=== PATIENT | female | born 1975 | race Caucasian/White ===

== ENCOUNTER 2017-03-13 17:24 | Emergency (ER) | payer OTHER ==
[2017-03-13 17:31] VITALS: BP 98/61
--- NOTE | 2017-03-13 17:44 | UC ---
Throat Pain/Nasal Rohan HPI - HPI Summary HPI Summary: sinus pain and pressure x 7 days + pnd, cough, nasal congestion and sore throat no fever, + chills - History of Current Complaint Chief Complaint: UCRespiratory Stated Complaint: CHEST CONGESTION,COUGH Time Seen by Provider: 03/13/17 17:32 Hx Obtained From: Patient Hx Last Menstrual Period: n/a ?: No Onset/Duration: Gradual Onset, Lasting Weeks - 1, Still Present Severity: Moderate Cough: Sputum Appears - green Associated Signs & Symptoms: Positive: Sinus Discomfort, Nasal Discharge - Allergies/Home Medications Allergies/Adverse Reactions: Allergies Allergy/AdvReac Type Severity Reaction Status Date / Time Ethanol [From Robitussin] AdvReac Vomiting Verified 03/13/17 17:31 Guaifenesin [From Robitussin] AdvReac Vomiting Verified 03/13/17 17:31 Morphine AdvReac See Comment Verified 03/13/17 17:31 Home Medications: Home Medications Famotidine TAB* [Pepcid 20 MG TAB*] 20 mg PO DAILY 03/13/17 [History Confirmed 03/13/17] PMH/Surg Hx/FS Hx/Imm Hx Endocrine History: Thyroid Disease Respiratory History: Asthma - Surgical History Surgical History: Yes Surgery Procedure, Year, and Place: colonoscopy. endoscopic. histroscopic [place]. partial cervix removed. HYSTERECTOMY--03/2014 - Family History Known Family History: Negative: Diabetes - Social History Alcohol Use: None Substance Use Type: None Smoking Status (MU): Heavy Every Day Tobacco Smoker Type: Cigarettes Amount Used/How Often: 1 PPD Length of Time of Smoking/Using Tobacco: SINCE AGE 20 Have You Smoked in the Last Year: Yes Household Exposure Type: Cigarettes - Immunization History Most Recent Influenza Vaccination: no Review of Systems Constitutional: Negative Skin: Negative Eyes: Negative ENT: Negative, Sore Throat, Nasal Discharge, Sinus Congestion, Sinus Pain/ Tenderness Respiratory: Cough Is Patient Immunocompromised?: No All Other Systems Reviewed And Are Negative: Yes Physical Exam Triage Information Reviewed: Yes Appearance: Well-Appearing, No Pain Distress, Well-Nourished Vital Signs: Initial Vital Signs Temp 98.2 F 03/13/17 17:26 Pulse 69 03/13/17 17:26 Resp 16 03/13/17 17:26 BP 98/61 03/13/17 17:26 Pulse Ox 99 03/13/17 17:26 Vital Signs Reviewed: Yes Eyes: Positive: Conjunctiva Clear ENT: Positive: Normal ENT inspection, Hearing grossly normal, Pharyngeal erythema, Nasal congestion, Nasal drainage, TMs normal Neck: Positive: Supple, Nontender, No Lymphadenopathy Respiratory: Positive: Chest non-tender, Lungs clear, Normal breath sounds, No respiratory distress Cardiovascular Exam: Normal Cardiovascular: Positive: RRR, No Murmur, Pulses Normal Abdominal Exam: Normal Skin Exam: Normal Throat Pain/Nasal Course/Dx - Differential Dx/Diagnosis Provider Diagnoses: sinusitis Discharge - Discharge Plan Condition: Stable Disposition: HOME Prescriptions: Amoxicillin/Clavulanate TAB* [Augmentin TAB 875*] 875 mg PO BID #20 tab Patient Education Materials: Sinusitis (ED) Forms: *Work Release
== END 2017-03-13 17:51 | disposition home or self-care (01) ==
LOC: UCCORT 17:24
DX: J32.9 Chronic sinusitis, unspecified (principal); E07.9 Disorder of thyroid, unspecified; J45.909 Unspecified asthma, uncomplicated; Z90.710 Acquired absence of both cervix and uterus; Z88.5 Allergy status to narcotic agent; F17.210 Nicotine dependence, cigarettes, uncomplicated
CPT/HCPCS: 99212; G0463

== ENCOUNTER 2017-07-20 17:22 | Emergency (ER) | payer OTHER ==
[2017-07-20 18:38] VITALS: BP 117/68
--- NOTE | 2017-07-20 19:26 | UC ---
Dental HPI - HPI Summary HPI Summary: pt c/o gradual onset of left lower jaw pain and swelling along gum line. Pt states she has "bad teeth" and is scheduled for lower teeth to be extracted on Aug 03. Pt has all upper teeth extracted. and wears dentures. Has history of poor dentition. - History of Current Complaint Chief Complaint: UCDentalProblem Stated Complaint: DENTAL COMPLAINT Time Seen by Provider: 07/20/17 19:21 Hx Obtained From: Patient Hx Last Menstrual Period: n/a ?: No Onset/Duration: Gradual Onset, Lasting Days, Still Present Severity: Moderate Pain Intensity: 6 Aggravating Factor(s): Chewing Alleviating Factor(s): Nothing Related History: Swelling - Allergies/Home Medications Allergies/Adverse Reactions: Allergies Allergy/AdvReac Type Severity Reaction Status Date / Time Ethanol [From Robitussin] AdvReac Vomiting Verified 07/20/17 18:35 Guaifenesin [From Robitussin] AdvReac Vomiting Verified 07/20/17 18:35 Morphine AdvReac See Comment Verified 07/20/17 18:35 PMH/Surg Hx/FS Hx/Imm Hx Previously Healthy: Yes - Surgical History Surgical History: Yes Surgery Procedure, Year, and Place: colonoscopy. endoscopic. histroscopic [place]. partial cervix removed. HYSTERECTOMY--03/2014 - Family History Known Family History: Positive: Hypertension, Respiratory Disease, Other - MS - mom and two aunts Negative: Diabetes - Social History Occupation: Employed Full-time Lives: With Family Alcohol Use: None Substance Use Type: None Smoking Status (MU): Heavy Every Day Tobacco Smoker Type: Cigarettes Amount Used/How Often: 1 PPD Length of Time of Smoking/Using Tobacco: SINCE AGE 20 Have You Smoked in the Last Year: Yes Household Exposure Type: Cigarettes - Immunization History Most Recent Influenza Vaccination: none 2017 Review of Systems Constitutional: Negative Skin: Negative Eyes: Negative ENT: Dental Pain Respiratory: Negative Cardiovascular: Negative Gastrointestinal: Negative Genitourinary: Negative Motor: Negative Neurovascular: Negative Musculoskeletal: Negative Neurological: Negative Psychological: Negative Is Patient Immunocompromised?: No All Other Systems Reviewed And Are Negative: Yes Physical Exam Triage Information Reviewed: Yes Appearance: Well-Appearing Vital Signs: Initial Vital Signs Temp 98.1 F 07/20/17 18:32 Pulse 65 07/20/17 18:32 Resp 16 07/20/17 18:32 BP 117/68 07/20/17 18:32 Pulse Ox 100 07/20/17 18:32 Vital Signs Reviewed: Yes Eye Exam: Normal ENT Exam: Normal Dental: Positive: Percussion Tenderness @, Gross Decay/Caries @, Abscess @ - left lower teeth, Numbers 20-22 Dental Complaint Course/Dx - Course Course Of Treatment: Pt was instructed to keep appointment with dental proovider for f/u and if symptoms worsen to seek medical/dental attention as soon as possible. - Differential Dx/Diagnosis Differential Diagnosis/Dx: Dental Abscess, Dental Caries Provider Diagnoses: dental abscess Discharge - Discharge Plan Condition: Stable Disposition: HOME Prescriptions: Clindamycin Cap(NF) [Clindamycin Cap 300 mg Cap(NF)] 300 mg PO Q8H #30 cap Ibuprofen TAB* [Motrin TAB* 600 MG] 600 mg PO Q8H PRN #15 tab PRN Reason: Pain Patient Education Materials: Dental Abscess (ED) Referrals: KHARI Dyson [Primary Care Provider] - If Needed Additional Instructions: Please follow up with your dental care provider as scheduled. If symptoms worsen please follow up as needed.
== END 2017-07-20 19:35 | disposition home or self-care (01) ==
LOC: UCCORT 17:22
DX: K04.7 Periapical abscess without sinus (principal); F17.210 Nicotine dependence, cigarettes, uncomplicated
CPT/HCPCS: 99212; G0463

== ENCOUNTER 2017-09-04 12:58 | Emergency (ER) | payer OTHER ==
[2017-09-04 13:37] VITALS: BP 107/64
[2017-09-04] MEDS ORDERED: Ibuprofen ADULT LIQ* 600 MG/30 ML UDC PO ONE (14:09)
--- NOTE | 2017-09-04 14:14 | UC ---
UC General HPI - HPI Summary HPI Summary: pt is c/o pain in her R front lower rib for the past weeks. it radiates around the side and into her back ribs with a deep breath. she denies any fever, chills , cough, sob, leg/calf pain/swelling and no associated injury. pt denies any abdominal pain of changes with meals and has no urinary s/s's. she lifts and twist a lot at work which causes her discomfort. - History of Current Complaint Chief Complaint: UCBackPain Stated Complaint: RIGHT RIB/BACK PAIN Time Seen by Provider: 09/04/17 13:45 Hx Obtained From: Patient Hx Last Menstrual Period: n/a Onset/Duration: Gradual Onset Timing: Constant Pain Intensity: 7 Associated Signs & Symptoms: Negative: Abdominal Pain, Back Pain, Cough, Dysuria , Fever, Hemoptysis, SOB, Wheezing - Allergy/Home Medications Allergies/Adverse Reactions: Allergies Allergy/AdvReac Type Severity Reaction Status Date / Time guaifenesin [From Robitussin] Allergy Vomiting Verified 09/04/17 13:40 morphine Allergy See Comment Verified 09/04/17 13:40 PMH/Surg Hx/FS Hx/Imm Hx Previously Healthy: Yes - Surgical History Surgical History: Yes Surgery Procedure, Year, and Place: colonoscopy. endoscopic. histroscopic [place]. partial cervix removed. HYSTERECTOMY--03/2014 - Family History Known Family History: Positive: Hypertension, Respiratory Disease, Other - MS - mom and two aunts Negative: Diabetes - Social History Occupation: Employed Full-time Lives: With Family Alcohol Use: None Substance Use Type: None Smoking Status (MU): Heavy Every Day Tobacco Smoker Type: Cigarettes Amount Used/How Often: 1 PPD Length of Time of Smoking/Using Tobacco: SINCE AGE 20 Have You Smoked in the Last Year: Yes Household Exposure Type: Cigarettes - Immunization History Most Recent Influenza Vaccination: none 2017 Vaccination Up to Date: Yes Review of Systems Constitutional: Negative Skin: Negative Eyes: Negative ENT: Negative Respiratory: Negative Cardiovascular: Negative Gastrointestinal: Negative Genitourinary: Negative Motor: Negative Neurovascular: Negative Musculoskeletal: Negative Neurological: Negative Psychological: Negative Is Patient Immunocompromised?: No All Other Systems Reviewed And Are Negative: Yes Physical Exam Triage Information Reviewed: Yes Appearance: Well-Appearing Vital Signs: Initial Vital Signs Temp 98.9 F 09/04/17 13:31 Pulse 60 09/04/17 13:31 Resp 16 09/04/17 13:31 BP 107/64 09/04/17 13:31 Pulse Ox 99 09/04/17 13:31 Vital Signs Reviewed: Yes Eyes: Positive: Conjunctiva Clear ENT: Positive: Normal ENT inspection Neck: Positive: Supple, Nontender, No Lymphadenopathy Respiratory: Positive: Lungs clear, Normal breath sounds, Other: - Chest has no rash or deformity. R anterior-inferior ribs are tender but no instability. R posterior lateral rib areas are tender as well. Cardiovascular: Positive: RRR, No Murmur, Pulses Normal Abdomen Description: Positive: Nontender, No Organomegaly, Soft, Other: - Pt c/ o pain with percussion on R but states it is rib pain.. Negative: CVA Tenderness (L), Distended, Guarding Bowel Sounds: Positive: Present Musculoskeletal: Positive: ROM Intact, No Edema, Other: - no calf tenderness. Neurological: Positive: Alert Psychological: Positive: Age Appropriate Behavior Skin Exam: Normal Skin: Negative: rashes Diagnostics - Laboratory ABG Interpretation: u/a=unremarkable - Radiology No standard instances Xray Interpretation: No Acute Changes Radiology Interpretation Completed By: Radiologist Course/Dx - Course Course Of Treatment: non toxic. benign abdominal exam. u/a=unremarkable. no concern for PE, not hypoxic, tachycardic, sob and no calf pain or swelling. cxr unremarkable. exam c/w chest wall pain. will limit work duty and tx with nsaid plus close f/u. - Differential Dx - Multi-Symptom Provider Diagnoses: R chest wall pain Discharge - Discharge Plan Condition: Stable Disposition: HOME Prescriptions: Naproxen [Naprosyn] 500 mg PO BID 7 Days #14 tablet Patient Education Materials: Chest Wall Pain (ED) Forms: *Work Release Referrals: KHARI Dyson [Primary Care Provider] - 5 Days
--- NOTE | 2017-09-04 14:32 | RAD ---
INDICATION: RIGHT anterior rib pain radiating into the back. COMPARISON: July 14, 2010 TECHNIQUE: Dual energy PA and routine lateral views of the chest were obtained. REPORT: Elevated lung volumes. No focal pulmonary lesion, compelling alveolar consolidation, pleural effusion, pneumothorax. The heart, pulmonary vasculature, and mediastinal contours are unremarkable. No rib fracture visualized. IMPRESSION: Elevated lung volumes may reflect obstructive lung disease or simply exuberant inspiratory effort for examination. No rib fracture acute cardiopulmonary process evident.
== END 2017-09-04 15:06 | disposition home or self-care (01) ==
LOC: UCCORT 12:58
DX: R07.89 Other chest pain (principal); Z88.5 Allergy status to narcotic agent; F17.210 Nicotine dependence, cigarettes, uncomplicated
CPT/HCPCS: 71046; 81003; 99212; A9270-GY; G0463

== ENCOUNTER 2017-11-12 10:34 | Emergency (ER) | payer OTHER ==
[2017-11-12 11:35] VITALS: BP 103/55
--- NOTE | 2017-11-12 11:45 | UC ---
Eye Complaint HPI - HPI Summary HPI Summary: 42 y/o female presents to the urgent care c/o B/L eye redness w/ crusty drainage since yesterday. Pt reports this morning she woke up w/ B/L eye close w/ yellowish drainage. Pt doesn't wear contact lenses or glasses. Pt denies photophobia or visual disturbance, OSEI, eye pain, dizziness, SOB, chest pain, abdominal pain/ N/V/D. - History of Current Complaint Chief Complaint: UCEye Stated Complaint: BI LAT EYE COMP Hx Obtained From: Patient Hx Last Menstrual Period: n/a ?: No Onset/Duration: Gradual Onset, Lasting Days - 1 day, Still Present, Worse Since - this morning Timing: Constant Severity Initially: Mild Severity Currently: Moderate Pain Intensity: 0 Pain Scale Used: 0-10 Numeric Location of Injury: Conjunctiva - B/L w/ yellowish drainage Character: Foreign Body Sensation Aggravating Factor(s): Blinking Alleviating Factor(s): Nothing Associated Signs And Symptoms: Positive: Drainage (Purulent). Negative: Photophobia, Fever, Swelling - Risk Factors Penetrating Injury Risk Factor: Negative Globe Rupture Risk Factors: Negative Acute Glaucoma Risk Factors: Negative Optic Artery Occlusion Risk Factors: Negative - Allergies/Home Medications Allergies/Adverse Reactions: Allergies Allergy/AdvReac Type Severity Reaction Status Date / Time guaifenesin [From Robitussin] Allergy Vomiting Verified 11/12/17 11:31 morphine Allergy See Comment Verified 11/12/17 11:31 Home Medications: Home Medications Acyclovir* [Zovirax 400 MG TAB*] 800 mg PO DAILY 11/12/17 [History Confirmed ] Cyclobenzaprine TAB* [Flexeril 10 MG TAB*] 10 mg PO BID PRN 11/12/17 [History Confirmed 11/12/17] Levothyroxine TAB* [Synthroid 137 MCG TAB*] 137 mcg PO EVERY OTHER DAY 11/12/17 [History Confirmed 11/12/17] PMH/Surg Hx/FS Hx/Imm Hx Previously Healthy: Yes Endocrine History: Hypothyroidism Respiratory History: Asthma Other GI/ History: Gastroperesis - Surgical History Surgical History: Yes Surgery Procedure, Year, and Place: colonoscopy. endoscopic. histroscopic [place]. partial cervix removed. HYSTERECTOMY--03/2014 - Family History Known Family History: Positive: Hypertension, Respiratory Disease, Other - MS - mom and two aunts Negative: Diabetes - Social History Occupation: Employed Full-time Lives: With Family Alcohol Use: None Substance Use Type: None Smoking Status (MU): Heavy Every Day Tobacco Smoker Type: Cigarettes Amount Used/How Often: 1 PPD Length of Time of Smoking/Using Tobacco: SINCE AGE 20 Have You Smoked in the Last Year: Yes Household Exposure Type: Cigarettes - Immunization History Most Recent Influenza Vaccination: none 2017 Vaccination Up to Date: Yes Review of Systems Constitutional: Negative Skin: Negative Eyes: Drainage - yellowish crusting, Eye Redness - B/L ENT: Negative Respiratory: Negative Cardiovascular: Negative Gastrointestinal: Negative Genitourinary: Negative Motor: Negative Neurovascular: Negative Musculoskeletal: Negative Neurological: Negative Psychological: Negative Is Patient Immunocompromised?: No All Other Systems Reviewed And Are Negative: Yes Physical Exam - Summary Physical Exam Summary: Vital Signs Reviewed: Yes General: Well appearing, well nourished female in no apparent pain distress Eyes: Positive: B/L Conjunctiva Inflamed - Visual acuity: WNL,Visual galindo: full to confrontation. PERRLA, EOMI intact w/out limitation or complaint of pain. eyelashes crusting yellowish discharge and mild tearing and yellowish drainage observed. No ciliary flush. No chemosis, No photophobia. Normal fundoscopic exam; no proptosis, exophthalmos, nystagmus. ENT: Positive: Normal ENT inspection, Hearing grossly normal, Pharynx normal, Nasal congestion, Nasal drainage - clear, TMs normal - B/L external ear canal clear , TM's WNL. Negative: Tonsillar swelling, Tonsillar exudate Neck: Positive: Supple, Nontender, No Lymphadenopathy Respiratory: Positive: Chest nontender, Lungs clear, Normal breath sounds, No respiratory distress Cardiovascular: Positive: RRR, No Murmur, Pulses Normal, Brisk Capillary Refill Abdomen Description: Positive: Nontender, No Organomegaly, Soft. Negative: CVA Tenderness (R), CVA Tenderness (L) Bowel Sounds: Positive: Present Musculoskeletal: Positive: Strength Intact, ROM Intact, No Edema Neurological Exam: Normal Psychological Exam: Normal Skin Exam: Normal Triage Information Reviewed: Yes Vital Signs: Initial Vital Signs Temp 98.2 F 11/12/17 11:26 Pulse 64 11/12/17 11:26 Resp 16 11/12/17 11:26 BP 103/55 05/21/18 11:26 Pulse Ox 100 11/12/17 11:26 Eye Complaint Course/Dx - Course Course Of Treatment: 42 y/o female presents to the urgent care c/o B/L eye redness w/ crusty drainage since yesterday. Pt reports this morning she woke up w/ B/L eye close w/ yellowish drainage. Pt doesn't wear contact lenses or glasses. Pt denies photophobia or visual disturbance, OSEI, eye pain, dizziness, SOB, chest pain, abdominal pain/ N/V/D.Hx obtained. Pt w/ B/L bacterial conjunctivitis on examination. Pt Rx Ciprofloxacin ophthalmic drops for her bacterial conjunctivitis. Pt instructed how to apply medication and if symptoms do not improve, advised to return to the urgent care or f/u with PCP for further evaluation and treatment. Pt understood and agreed w/ plan of care. - Differential Dx/Diagnosis Differential Diagnosis/HQI/PQRI: Conjunctivitis, Periorbital Cellulitis, Orbital Cellulitis, Uveitis Provider Diagnoses: 1- B/L acute bacterial conjunctivitis Discharge - Sign-Out/Discharge Documenting (check all that apply): Discharge/Admit/Transfer - D/C home - Discharge Plan Condition: Stable Disposition: HOME Prescriptions: Ciprofloxacin 0.3% OPTH.OBINNA* [Cipro 0.3% Opth*] 1 drop BOTH EYES Q2H #1 btl Patient Education Materials: Conjunctivitis (ED) Forms: *Work Release Referrals: KHARI Dyson [Primary Care Provider] - 2 Days Gena Blanca MD [Medical Doctor] - If Needed Additional Instructions: 1-Please apply ophthalmic drops as instructed and finish the full course of treatment to avoid recurrent infection. Encourage hand washing to avoid spread 2-If you do not improve or if symptoms worsen please f/u with wet and dry sugar bin operator DR Blanca or your PCP for further evaluation and treatment - Billing Disposition and Condition Condition: STABLE Disposition: HOME
--- NOTE | 2017-11-13 17:02 | ED ---
Progress - Progress Note Progress Note: pharmacy doesnt have cipro drops, and asked for alternate script. Sulfa drops sent. Work note extension requested and granted. Course/Dx - Course Course Of Treatment: 42 y/o female presents to the urgent care c/o B/L eye redness w/ crusty drainage since yesterday. Pt reports this morning she woke up w/ B/L eye close w/ yellowish drainage. Pt doesn't wear contact lenses or glasses. Pt denies photophobia or visual disturbance, OSEI, eye pain, dizziness, SOB, chest pain, abdominal pain/ N/V/D.Hx obtained. Pt w/ B/L bacterial conjunctivitis on examination. Pt Rx Ciprofloxacin ophthalmic drops for her bacterial conjunctivitis. Pt instructed how to apply medication and if symptoms do not improve, advised to return to the urgent care or f/u with PCP for further evaluation and treatment. Pt understood and agreed w/ plan of care. Discharge - Sign-Out/Discharge Documenting (check all that apply): Discharge/Admit/Transfer - Discharge Plan Condition: Stable Disposition: HOME Prescriptions: Ciprofloxacin 0.3% OPTH.OBINNA* [Cipro 0.3% Opth*] 1 drop BOTH EYES Q2H #1 btl Sulfacetamide 10 % OPTH.OBINNA* [Sulamyd 10% Opth*] 1 drop BOTH EYES Q4H #1 btl Patient Education Materials: Conjunctivitis (ED) Forms: *Work Release Referrals: KHARI Dyson [Primary Care Provider] - 2 Days Gena Blanca MD [Medical Doctor] - If Needed Additional Instructions: 1-Please apply ophthalmic drops as instructed and finish the full course of treatment to avoid recurrent infection. Encourage hand washing to avoid spread 2-If you do not improve or if symptoms worsen please f/u with dean of girls DR Blanca or your PCP for further evaluation and treatment - Billing Disposition and Condition Condition: STABLE Disposition: HOME
== END 2017-11-12 12:19 | disposition home or self-care (01) ==
LOC: UCCORT 10:34
DX: H10.89 Other conjunctivitis (principal); A49.9 Bacterial infection, unspecified; Z88.5 Allergy status to narcotic agent; Z88.8 Allergy status to other drugs, medicaments and biological substances; E03.9 Hypothyroidism, unspecified; F17.210 Nicotine dependence, cigarettes, uncomplicated
CPT/HCPCS: 99212; G0463

== ENCOUNTER 2018-04-09 08:30 | Emergency (ER) | payer OTHER ==
[2018-04-09 08:48] VITALS: BP 102/59
--- NOTE | 2018-04-09 09:14 | UC ---
Respiratory Complaint HPI - HPI Summary HPI Summary: cough x 2 weeks cough is productive with yellow sputum + nasal congestion, pnd, no fever, no chills, no sob - History of Current Complaint Chief Complaint: UCRespiratory Stated Complaint: CHEST CONGESTION, HEADACHE Time Seen by Provider: 04/09/18 09:07 Hx Obtained From: Patient Hx Last Menstrual Period: n/a ?: No Onset/Duration: Gradual Onset, Lasting Weeks - 2, Still Present Timing: Constant Severity Initially: Moderate Severity Currently: Moderate Pain Intensity: 4 Character: Cough: Productive - yellow sputum Aggravating Factors: Exertion, Deep Breaths Alleviating Factors: Nothing Associated Signs And Symptoms: Positive: Chills, URI, Nasal Congestion. Negative: Dyspnea, Fever, Pleuritic Chest Pain, Calf Swelling - Allergies/Home Medications Allergies/Adverse Reactions: Allergies Allergy/AdvReac Type Severity Reaction Status Date / Time guaifenesin [From Robitussin] Allergy Vomiting Verified 04/09/18 08:44 morphine Allergy See Comment Verified 04/09/18 08:44 nickel Allergy Rash Verified 04/09/18 08:44 PMH/Surg Hx/FS Hx/Imm Hx - Additional Past Medical History Additional PMH: cervical CA Respiratory History: Asthma GI/ History: Gastroesophageal Reflux - Surgical History Surgical History: Yes Surgery Procedure, Year, and Place: colonoscopy. endoscopic. histroscopic [place]. partial cervix removed. HYSTERECTOMY--03/2014 - Family History Known Family History: Positive: Hypertension, Respiratory Disease, Other - MS - mom and two aunts Negative: Diabetes - Social History Alcohol Use: None Substance Use Type: None Smoking Status (MU): Heavy Every Day Tobacco Smoker Type: Cigarettes Amount Used/How Often: 1 PPD Length of Time of Smoking/Using Tobacco: SINCE AGE 20 Have You Smoked in the Last Year: Yes Household Exposure Type: Cigarettes - Immunization History Most Recent Influenza Vaccination: none 2017 Vaccination Up to Date: Yes Review of Systems Constitutional: Negative Skin: Negative Eyes: Negative ENT: Nasal Discharge Respiratory: Cough Cardiovascular: Negative Gastrointestinal: Negative Is Patient Immunocompromised?: No All Other Systems Reviewed And Are Negative: Yes Physical Exam Triage Information Reviewed: Yes Appearance: Well-Appearing, No Pain Distress, Well-Nourished Vital Signs: Initial Vital Signs Temp 98.4 F 04/09/18 08:44 Pulse 73 04/09/18 08:44 Resp 17 04/09/18 08:44 BP 102/59 04/09/18 08:44 Pulse Ox 100 04/09/18 08:44 Vital Signs Reviewed: Yes Eye Exam: Normal Eyes: Positive: Conjunctiva Clear ENT: Positive: Normal ENT inspection, Hearing grossly normal, Pharynx normal, Nasal drainage Neck: Positive: Supple, Nontender, No Lymphadenopathy Respiratory: Positive: Chest non-tender, Lungs clear, Normal breath sounds, No respiratory distress Cardiovascular: Positive: RRR, No Murmur, Pulses Normal Skin Exam: Normal UC Diagnostic Evaluation - Laboratory O2 Sat by Pulse Oximetry: 100 Respiratory Course/Dx - Differential Dx/Diagnosis Provider Diagnoses: Bronchitis Discharge - Sign-Out/Discharge Documenting (check all that apply): Patient Departure All imaging exams completed and their final reports reviewed: No Studies - Discharge Plan Condition: Stable Disposition: HOME Prescriptions: Azithromycin TAB* [Zithromax TAB (Z-TANNER) 250 mg #6 tabs] 2 tab PO .TODAY, THEN 1 DAILY #1 tanner Patient Education Materials: Acute Bronchitis (ED) Forms: *Work Release Referrals: Mamta Newton MD [Primary Care Provider] - 7 Days - Billing Disposition and Condition Condition: STABLE Disposition: Home
== END 2018-04-09 09:15 | disposition home or self-care (01) ==
LOC: UCCORT 08:30
DX: J40 Bronchitis, not specified as acute or chronic (principal); K21.9 Gastro-esophageal reflux disease without esophagitis; F17.210 Nicotine dependence, cigarettes, uncomplicated; Z88.5 Allergy status to narcotic agent; Z88.8 Allergy status to other drugs, medicaments and biological substances; Z85.41 Personal history of malignant neoplasm of cervix uteri
CPT/HCPCS: 99212; G0463

== ENCOUNTER 2019-01-09 17:17 | Emergency (ER) | payer OTHER ==
--- OUTSIDE RECORDS SUMMARY | 2019-01-09 17:26 | XMS REPORT | Continuity of Care Document ---
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 Unavailable Mamta Newton MD Primary Care Physician Unavailable Payers Date Identification Numbers Payment Provider Subscriber Policy Number: [id number] [facility] Carolann Lord PayID: [id number] [address] [place] [address] Problems Active Problems Provider Date Disorder of thyroid gland Lacy Mays PA Onset: 08/07/2011 Hypothyroidism Lacy Mays PA Onset: 08/07/2011 Family History Date Family Member(s) Observation Comments General Asthma General Hearing loss Social History Type Date Description Comments Sex Unknown 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 Tablets Omeprazole 1 by mouth 30caps Jeff Dennis, 05/14/[address] every day M.D. Acyclovir Qday Unknown 400mg Tablets Cyclobenzaprine HCL 1 tab by mouth Unknown 10mg three times a Tablets day as needed for muscle spasms Proventil HFA 2puffs four Unknown 108(90Base) times a day as mcg/Act Aerosol needed Ibuprofen prn Unknown 800mg Tablets Tylenol Extra Strength 1-2 by mouth Unknown 500mg every 4 to 6 Tablets hours as needed for pain History Medications Ciprodex 5 drops twice a 7.500ml Jeff Dennis, 07/30/2018 - 0.3-0.1% day x 10 days left M.D. 09/30/2018 Suspension ear Levothyroxine Sodium 1 by mouth every 90tabs Jeff Dennis, 07/30/2018 - day M.D. 08/07/2018 125mcg Tablets Levothyroxine Sodium 1 by mouth every 30tabs Jeff Dennis, 05/20/2018 - day M.D. 07/30/2018 112mcg Tablets Levothyroxine Sodium 1 by mouth every Jeff Dennis, 03/15/2018 - day M.D. 05/20/2018 100mcg Tablets Amoxicillin twice a day 1 week 14tabs Jeff Dennis, 12/05/2017 - 875mg Tablets M.D. 12/31/2017 Levothyroxine Sodium 1 by mouth every 90tabs Jeff Dennis, 10/23/2017 - other day M.D. 10/22/2017 137mcg Tablets Levothyroxine Sodium 1 by mouth every 90tabs Jeff Dennis, 10/23/2017 - day M.D. 03/15/2018 137mcg Tablets Cephalexin 500 mg three times 21tabs Jeff Dennis, 02/12/2017 - 500mg Tablets a day 7 days M.D. 05/13/2017 Fluticasone Propionate 2 sprays both 32gm Jeff Dennis, 12/04/2016 - nostrils every day M.D. 09/20/2017 50mcg/Act Suspension Amoxicillin/Clavulanat 1 tab twice daily 14tabs Jeff Dennis, 11/06/2016 - e Potassium with food x 7 M.D. 11/28/2016 875-125mg days. Tablets Azithromycin 1 by mouth every 5tabs Jeff Dennis, 10/05/2016 - 500mg day M.D. 11/28/2016 Tablets Bactroban Nasal apply twice in rhe 1units Jeff Dennis, 09/04/2016 - 2% affected area M.D. 10/04/2016 Ointment daily for 10 days Ranitidine HCL One Tab Daily 90caps Jeff Dennis, 07/03/2016 - 150mg M.D. 09/03/2016 Capsules Levothyroxine Sodium 1 by mouth every 90tabs Jeff Dennis, 06/08/2016 - other day M.D. 10/04/2016 137mcg Tablets Levothyroxine Sodium 1 by mouth qod 60tabs Jeff Dennis, 03/25/2015 - M.D. 04/16/2016 137mcg Tablets Xanax one tab at night 30tabs Jeff Dennis, 11/12/2014 - 0.25mg Tablets M.D. 09/03/2016 Levothyroxine Sodium 1 by mouth every 90tabs Jeff Dennis, 09/11/2014 - day M.D. 03/25/2015 125mcg Tablets Levothyroxine Sodium one everyday 90tabs Jeff Dennis, 07/23/2014 - M.D. 09/11/2014 150mcg Tablets Levothyroxine Sodium 1 by mouth every 90tabs Jeff Dennis, 06/03/2014 - day M.D. 07/23/2014 137mcg Tablets Levothyroxine Sodium everyday 90tabs Jeff Dennis, 04/16/2014 - M.D. 06/03/2014 150mcg Tablets Levothyroxine Sodium 1 tab.po everyday 90tabs Jeff Dennis, 04/13/2014 - M.D. 04/16/2014 175mcg Tablets Levothyroxine Sodium one everyday 90tabs Jeff Dennis, 04/13/2014 - Wrong Script, M.D. 04/13/2014 150mcg Tablets Please Cancel Levothyroxine Sodium 1 tab.po everyday 60tabs Jeff Dennis, 01/30/2014 - M.D. 04/13/2014 175mcg Tablets Amoxicillin/Clavulanat 1 tab twice daily 14tabs Jeff Dennis, 08/05/2013 - e Potassium with food x 7 M.D. 01/20/2014 875-125mg days. Tablets Prednisone 1 po qd x 5 days 5tabs Jeff Dennis, 08/05/2013 - 20mg Tablets M.D. 01/20/2014 Levothyroxine Sodium 1 po qd 90tabs Jeff Dennis, 06/27/2013 - M.D. 01/30/2014 200mcg Tablets Levothyroxine Sodium 1 tab.po qday 90tabs Jeff Dennis, 04/08/2013 - M.D. 06/27/2013 175mcg Tablets Levothyroxine Sodium take 1 tablet by 30tabs Jeff Dennis, 12/31/2012 - mouth once daily M.D. 08/06/2013 137mcg Tablets Ranitidine HCL one tab daily 90tabs Jeff Dennis, 09/21/2012 - 300mg evening M.D. 01/20/2014 Tablets Levothroid one tab daily 90tabs Jeff Dennis, 03/27/2012 - 137mcg Tablets M.D. 03/18/2013 Levothyroxine Sodium 1 po qd 60tabs Jeff Dennis, 10/10/2011 - M.D. 04/16/2012 125mcg Tablets Levothyroxine Sodium 1 po qd 60tabs Jeff Dennis, 08/11/2011 - M.D. 10/10/2011 137mcg Tablets Calcitriol 1 po qd 90caps Jeff Dennis, 08/07/2011 - 0.25mcg M.D. 11/11/2014 Capsules Levothyroxine Sodium qday 90tabs Jeff Dennis, 06/06/2011 - M.D. 08/11/2011 150mcg Tablets Levoxyl 1 by mouth every 30tabs Jeff Dennis, 04/05/2011 - 175mcg Tablets day M.D. 08/07/2011 Cytomel 1 Qday 90tabs Jeff Dennis, 10/06/2009 - 50mcg Tablets M.D. 08/07/2011 Levoxyl 1 po qd 90tabs Jeff Dennis, 12/02/2008 - 200mcg Tablets M.D. 04/05/2011 Levoxyl 1 po qd 30tabs Jeff Dennis, - 175mcg Tablets M.D. 12/02/2008 Asacol 1 tid Unknown - 400mg Tablets 08/07/2011 Lexapro 1 po qd Unknown - 20mg Tablets 08/07/2011 Protonix 1 po qd 30tabs Unknown - 40mg Tablets 08/07/2011 Albuterol 2 puffs qid prn 17gm Unknown - 90mcg/Act 08/07/2011 Aerosol Depo-Provera Q 3 Mo Unknown - 400mg/ml 08/07/2011 Suspension Synthroid 1 po qd 30tabs Unknown - 175mcg Tablets 02/22/2009 Zegerid one tab a day 30caps Unknown - 40-1100mg morning 01/21/2014 Capsules Amoxicillin 1 po tid Unknown - 500mg Tablets 11/06/2011 Pantoprazole Sodium 1 by mouth every 30tabs Unknown - 40mg day 05/14/2017 Tablets Meclizine HCL 1-2 by mouth every Unknown - Tablets 6 hours as needed 09/03/2016 dizzyness Levothyroxine Sodium 1 tab by mouth 60tabs Jeff Dennis, - every other day M.DJaclyn 12/31/2017 150mcg Tablets Gabapentin 1 po qd Unknown - 400mg Capsules 09/30/2018 Vital Signs Date Vital Result Comment 01/03/2019 9:01am Weight 144.00 lb Height 65.5 inches 5'5.50" BMI (Body Mass Index) 23.6 kg/m2 BP Systolic 109 mmHg BP Diastolic 74 mmHg Heart Rate 80 /min O2 % BldC Oximetry 98 % Body Temperature 97.9 F Pain Level 0 10/17/2018 10:49am Weight 145.00 lb Height 65.5 inches 5'5.50" BMI (Body Mass Index) 23.8 kg/m2 BP Systolic 139 mmHg BP Diastolic 85 mmHg Heart Rate 97 /min O2 % BldC Oximetry 99 % Body Temperature 98.0 F Pain Level 6 09/10/2018 11:14am Weight 139.00 lb Height 65.5 inches 5'5.50" BMI (Body Mass Index) 22.8 kg/m2 BP Systolic 113 mmHg BP Diastolic 80 mmHg Heart Rate 88 /min O2 % BldC Oximetry 99 % Body Temperature 98.4 F Pain Level 0 08/23/2018 8:36am Weight 138.00 lb Height 65.5 inches 5'5.50" BMI (Body Mass Index) 22.6 kg/m2 BP Systolic 113 mmHg BP Diastolic 77 mmHg Heart Rate 64 /min O2 % BldC Oximetry 100 % Body Temperature 98.2 F Pain Level 8 07/30/2018 4:16pm Weight 135.00 lb Height 65.5 inches 5'5.50" BMI (Body Mass Index) 22.1 kg/m2 BP Systolic 114 mmHg BP Diastolic 78 mmHg Heart Rate 75 /min O2 % BldC Oximetry 97 % Body Temperature 96.4 F Pain Level 6 04/29/2018 4:10pm Weight 130.00 lb Height 65.5 inches 5'5.50" BMI (Body Mass Index) 21.3 kg/m2 BP Systolic 117 mmHg BP Diastolic 78 mmHg Heart Rate 82 /min O2 % BldC Oximetry 99 % Body Temperature 97.5 F Pain Level 0 01/01/2018 4:25pm Weight 124.00 lb Height 65.5 inches 5'5.50" BMI (Body Mass Index) 20.3 kg/m2 BP Systolic 118 mmHg BP Diastolic 78 mmHg Heart Rate 87 /min O2 % BldC Oximetry 99 % Body Temperature 98.1 F Pain Level 0 12/05/2017 4:19pm Weight 125.00 lb Height 65.5 inches 5'5.50" BMI (Body Mass Index) 20.5 kg/m2 BP Systolic 113 mmHg BP Diastolic 73 mmHg Heart Rate 83 /min O2 % BldC Oximetry 98 % Body Temperature 98.7 F Pain Level 0 09/21/2017 8:50am Weight 126.00 lb Height 65.5 inches 5'5.50" BMI (Body Mass Index) 20.6 kg/m2 BP Systolic 120 mmHg BP Diastolic 84 mmHg Heart Rate 99 /min O2 % BldC Oximetry 99 % Body Temperature 98.2 F Pain Level 0 07/24/2017 4:04pm Weight 125.00 lb Height 65.5 inches 5'5.50" BMI (Body Mass Index) 20.5 kg/m2 BP Systolic 121 mmHg BP Diastolic 82 mmHg Heart Rate 83 /min O2 % BldC Oximetry 98 % Body Temperature 98.8 F Pain Level 0 05/14/2017 4:25pm Weight 128.50 lb Height 65.5 inches 5'5.50" BMI (Body Mass Index) 21.1 kg/m2 BP Systolic 115 mmHg BP Diastolic 74 mmHg Heart Rate 65 /min O2 % BldC Oximetry 98 % Body Temperature 97.6 F Pain Level 0 02/08/2017 3:57pm Weight 131.00 lb Height 65.5 inches 5'5.50" BMI (Body Mass Index) 21.5 kg/m2 BP Systolic 115 mmHg BP Diastolic 77 mmHg Heart Rate 78 /min O2 % BldC Oximetry 98 % Body Temperature 98.4 F 11/29/2016 3:26pm Weight 139.00 lb Height 65.5 inches 5'5.50" BMI (Body Mass Index) 22.8 kg/m2 BP Systolic 126 mmHg BP Diastolic 83 mmHg Heart Rate 81 /min O2 % BldC Oximetry 98 % Body Temperature 97.9 F 10/05/2016 9:06am Weight 136.50 lb Height 65.5 inches 5'5.50" BMI (Body Mass Index) 22.4 kg/m2 BP Systolic 113 mmHg BP Diastolic 71 mmHg Heart Rate 69 /min O2 % BldC Oximetry 98 % Body Temperature 97.9 F 09/04/2016 9:05am Weight 135.50 lb Height 65.5 inches 5'5.50" BMI (Body Mass Index) 22.2 kg/m2 BP Systolic 104 mmHg BP Diastolic 68 mmHg Heart Rate 80 /min O2 % BldC Oximetry 98 % Body Temperature 98.2 F Pain Level 0 06/28/2016 1:15pm Weight 132.00 lb Height 65.5 inches 5'5.50" BMI (Body Mass Index) 21.6 kg/m2 BP Systolic 116 mmHg BP Diastolic 72 mmHg Heart Rate 77 /min O2 % BldC Oximetry 98 % Body Temperature 97.6 F 12/09/2015 11:22am Weight 129.25 lb Height 65.5 inches 5'5.50" BMI (Body Mass Index) 21.2 kg/m2 Heart Rate 74 /min O2 % BldC Oximetry 98 % Body Temperature 98.9 F 06/01/2015 3:10pm Weight 123.50 lb Height 65.5 inches 5'5.50" BMI (Body Mass Index) 20.2 kg/m2 BP Systolic 120 mmHg BP Diastolic 68 mmHg Heart Rate 68 /min O2 % BldC Oximetry 99 % Body Temperature 97.1 F 11/12/2014 3:08pm Weight 114.00 lb Height 65.5 inches 5'5.50" BMI (Body Mass Index) 18.7 kg/m2 BP Systolic 112 mmHg BP Diastolic 66 mmHg Heart Rate 71 /min O2 % BldC Oximetry 98 % Body Temperature 97.5 F 09/11/2014 2:50pm Weight 108.31 lb Height 65.5 inches 5'5.50" BMI (Body Mass Index) 17.7 kg/m2 BP Systolic 102 mmHg BP Diastolic 72 mmHg Heart Rate 90 /min O2 % BldC Oximetry 98 % Body Temperature 98.6 F Chicago Score 13 Neck Circumference in inches 13.25 07/14/2014 1:03pm Weight 108.00 lb Height 65.5 inches 5'5.50" BMI (Body Mass Index) 17.7 kg/m2 BP Systolic 102 mmHg BP Diastolic 62 mmHg Body Temperature 97.6 F 04/03/2014 2:27pm Weight 108.00 lb Height 65.5 inches 5'5.50" BMI (Body Mass Index) 17.7 kg/m2 BP Systolic 96 mmHg BP Diastolic 62 mmHg Heart Rate 82 /min O2 % BldC Oximetry 98 % Body Temperature 97.6 F 01/21/2014 3:28pm Weight 109.00 lb Height 65.5 inches 5'5.50" BMI (Body Mass Index) 17.9 kg/m2 BP Systolic 96 mmHg BP Diastolic 58 mmHg Heart Rate 85 /min O2 % BldC Oximetry 97 % Body Temperature 98.0 F 06/09/2013 10:53am Weight 117.25 lb Height 65.5 inches 5'5.50" BMI (Body Mass Index) 19.2 kg/m2 BP Systolic 98 mmHg BP Diastolic 70 mmHg Heart Rate 74 /min O2 % BldC Oximetry 98 % Body Temperature 98.2 F 04/08/2013 1:35pm Weight 118.38 lb Height 65.5 inches 5'5.50" BMI (Body Mass Index) 19.4 kg/m2 BP Systolic 100 mmHg BP Diastolic 60 mmHg Heart Rate 56 /min O2 % BldC Oximetry 98 % Body Temperature 99.5 F 09/21/2012 10:10am Weight 119.38 lb Height 65.5 inches 5'5.50" BMI (Body Mass Index) 19.6 kg/m2 BP Systolic 110 mmHg BP Diastolic 70 mmHg Heart Rate 78 /min O2 % BldC Oximetry 99 % Body Temperature 98.8 F 12/22/2011 11:33am Weight 123.00 lb Height 65.5 inches 5'5.50" BMI (Body Mass Index) 20.2 kg/m2 BP Systolic 102 mmHg BP Diastolic 68 mmHg Heart Rate 64 /min O2 % BldC Oximetry 99 % Body Temperature 97.8 F 10/09/2011 10:10am Weight 123.00 lb Height 65.5 inches 5'5.50" BMI (Body Mass Index) 20.2 kg/m2 BP Systolic 100 mmHg BP Diastolic 60 mmHg Body Temperature 98.0 F 08/07/2011 11:06am Weight 123.00 lb Height 65.5 inches 5'5.50" BMI (Body Mass Index) 20.2 kg/m2 BP Systolic 96 mmHg BP Diastolic 62 mmHg Heart Rate 96 /min O2 % BldC Oximetry 98 % Body Temperature 97.3 F 09/06/2010 9:33am Weight 120.00 lb Height 65.5 inches 5'5.50" BMI (Body Mass Index) 19.7 kg/m2 BP Systolic 102 mmHg BP Diastolic 74 mmHg Heart Rate 73 /min O2 % BldC Oximetry 99 % Body Temperature 97.9 F 04/27/2010 1:12pm Weight 123.38 lb Height 65.5 inches 5'5.50" BMI (Body Mass Index) 20.2 kg/m2 Heart Rate 87 /min O2 % BldC Oximetry 100 % Body Temperature 98.1 F 12/22/2008 4:02pm Weight 114.00 lb Height 65.5 inches 5'5.50" BMI (Body Mass Index) 18.7 kg/m2 07/07/2008 11:23am Weight 114.00 lb Height 65.5 inches 5'5.50" BMI (Body Mass Index) 18.7 kg/m2 BP Systolic 112 mmHg BP Diastolic 74 mmHg Body Temperature 97.8 F Results Test Date Facility Test Result H/L Range Note TSH+Free T4 10/17/2018 [facility] TSH 0.85 mcIU/mL Normal 0.34 -5.[address] (Thyroid [place], [place] [id number] Walt Wejw) [phone] Free T4 (Free Thyroxine) 1.33 ng/dL High 0.61-1.12 2 Laboratory test 10/10/2018 [facility] Surgical Pathology SEE RESULT [address] BEL[address] [place], [place] [id number] [phone] Leukemia/Lymphom 10/10/2018 [facility] Path Interpretation tnp a Phenot [address] 2-[address] [place] [address] [phone] Path Interpret 9-15 Marker (SEE NOTE) 4 Path Interpret > 16 Marker tnp Laboratory test 09/03/2018 [facility] Cytology SEE RESULT 5 , [address] Non-Dial [place] [address] [phone] TSH+Free T4 07/27/2018 [facility] Thyroid Stim 4.95 uIU/mL High 0.30- [address] Hormone 4.20 [place] [address] [phone] Free T4 1.09 ng/dL Normal 0.76-1.46 TSH+Free T4 05/09/2018 [facility] Thyroid Stim 22.80 uIU/mL High 0.30-4.[address] [place] [address] [phone] Free T4 0.91 ng/dL Normal 0.76-1.46 TSH+Free T4 12/17/2017 [facility] Thyroid Stim 0.05 uIU/mL Low 0.30-4.[address] [place] [address] [phone] Free T4 1.39 ng/dL Normal 0.76-1.46 TSH+Free T4 09/20/2017 [facility] Thyroid Stim 0.29 uIU/mL Low 0.30-4.[address] [place] [address] [phone] Free T4 1.36 ng/dL Normal 0.76-1.46 TSH+Free T4 07/19/2017 [facility] Thyroid Stim 9.59 uIU/mL High 0.30-4.[address] [place] [address] [phone] Free T4 1.38 ng/dL Normal 0.76-1.46 TSH+Free T4 06/09/2017 [facility] Thyroid 57.00 Critical 0.30- 4.[address] Stim uIU/[place] [address] Hormone [phone] Free T4 0.73 ng/dL Low 0.76-1.46 TSH+Free T4 03/28/2017 [facility] Thyroid Stim 2.35 uIU/mL Normal 0.30-4.[address] [place] [address] [phone] Free T4 1.06 ng/dL Normal 0.76-1.46 TSH+Free T4 02/09/2017 [facility] Thyroid Stim 3.20 uIU/mL Normal 0.30-4.[address] [place] [address] [phone] Free T4 1.24 ng/dL Normal 0.76-1.46 Allergens,Zone 1 11/29/2016 [facility] mRast Class (SEE NOTE) 12, [address] (Text Only) [place] [address] [phone] D Pteronyssinus <0.10 kU/L Class 0 D Farinae Mite <0.10 kU/L Class 0 Cat Hair/Dander <0.10 kU/L Class 0 Dog Hair/Dander <0.10 kU/L Class 0 Bluegrass,[place] <0.10 kU/L Class 0 Bermuda Grass <0.10 kU/L Class 0 Bahia Grass <0.10 kU/L Class 0 Cockroach,Malian <0.10 kU/L Class 0 Penicillium Not <0.10 kU/L Class 0 Cladosporium Herbarum <0.10 kU/L Class 0 Apergillis Fumigatus Ige <0.10 kU/L Class 0 Mucor Racemosus <0.10 kU/L Class 0 Alternaria Alternata <0.10 kU/L Class 0 Stemphylium Bot <0.10 kU/L Class 0 Birch,White <0.10 kU/L Class 0 [place] Bay,White <0.10 kU/L Class 0 Elm,Malian (White) <0.10 kU/L Class 0 Jaswinder,White <0.10 kU/L Class 0 Hazelnut Tree T004 Ige <0.10 kU/L Class 0 [place],White <0.10 kU/L Class 0 Diamond,White <0.10 kU/L Class 0 [place]ountain <0.10 kU/L Class 0 Ragweed,Short/ <0.10 kU/L Class 0 Mugwort <0.10 kU/L Class 0 Plantain,Malawian <0.10 kU/L Class 0 Pigweed,Rough <0.10 kU/L Class 0 Sheep Heartland (DO <0.10 kU/L Class 0 Nettle <0.10 kU/L Class 0 14 Maple/Sullivan Ige T001 <0.10 kU/L Class 0 15 TSH+Free T4 09/04/2016 [facility] Thyroid Stim 0.41 uIU/mL Normal 0.30-4.[address] [place] [address] [phone] Free T4 1.14 ng/dL Normal 0.76-1.46 TSH+Free T4 06/28/2016 [facility] TSH (Thyroid 1.34 Normal 0.34-5.[address] Stim Horm) mcIU/[place] [address] [phone] Free T4 (Free Thyroxine) 1.28 ng/dL High 0.61-1.12 18 Thyroid Stim 03/31/2016 [facility] Thyroid Stim 4.42 uIU/mL High 0.30-4.20 19 Hormone [address] [facility] [place] [address] [phone] @[facility] Pat Id: [id number] @[facility] Req #: [id number] Free T4 03/31/2016 [facility] Free T4 1.13 ng/dL Normal 0.76- 1.46 [address] [place] [address] [phone] @[facility] Pat Id: [id number] @[facility] Req #: [id number] Thyroid Stim 02/16/2016 [facility] Thyroid Stim 6.25 uIU/mL High 0.30-4.20 20 [address] [place] [address] [phone] @[facility] Pat Id: [id number] @[facility] Req #: [id number] Free T4 02/16/2016 [facility] Free T4 1.16 ng/dL Normal 0.76- 1.46 [address] [place] [address] [phone] @[facility] Pat Id: [id number] @[facility] Req #: [id number] TSH+Free T4 12/09/2015 [facility] Thyroid Stim 15.20 uIU/mL High 0.30-4.[address] [place] [address] [phone] Free T4 0.98 ng/dL 0.76-1.46 TSH+Free T4 06/01/2015 [facility] Thyroid Stim 1.64 uIU/mL 0.36-3.[address] [place] [address] [phone] Free T4 1.22 ng/dL 0.76-1.46 TSH+Free T4 03/16/2015 [facility] Thyroid Stim 15.00 uIU/mL High 0.36-3.[address] [place] [address] [phone] Free T4 1.05 ng/dL 0.76-1.46 TSH+Free T4 11/12/2014 [facility] Thyroid Stim 5.08 uIU/mL High 0.36-3.[address] [place] [address] [phone] Free T4 1.26 ng/dL 0.76-1.46 Laboratory test 11/12/2014 [facility] Calcium 9.3 mg/dL 8.5- 10.1 finding [address] [place] [address] [phone] TSH+Free T4 08/20/2014 [facility] Thyroid Stim 0.28 Low 0.36- 3.[address] Hormone uIU/[place] [address] [phone] Free T4 1.35 ng/dL 0.76-1.46 Laboratory test 07/17/2014 [facility] Calcium 8.5 mg/dL 8.5- 10.1 finding [address] [place] [address] [phone] Thyroid Stim Hormone 14.70 uIU/mL High 0.36-3.74 Free T4 1.15 ng/dL 0.76-1.46 TSH+Free T4 06/01/2014 [facility] Thyroid Stim 0.09 uIU/mL Low 0.36-3.[address] Hormone [place] [id number] [phone] Free T4 1.15 ng/dL 0.76-1.46 TSH+Free T4 04/03/2014 [facility] Thyroid Stim 0.03 uIU/mL Low 0.36-3.[address] [place] [address] [phone] Free T4 1.77 ng/dL High 0.76-1.46 TSH+Free T4 01/21/2014 [facility] Thyroid Stim 2.34 uIU/mL 0.49-4.[address] [place] [address] [phone] Free T4 1.53 ng/dL 0.71-1.85 TSH+Free T4 08/05/2013 [facility] Thyroid Stim 2.92 uIU/mL 0.49-4.[address] [place] [address] [phone] Free T4 1.11 ng/dL 0.71-1.85 Laboratory test 08/05/2013 [facility] Calcium 9.1 mg/dL 8.5- 10.1 finding [address] [place] [address] [phone] TSH+Free T4 06/09/2013 [facility] Thyroid Stim 12.30 High 0.49 -4.[address] Hormone uIU/[place] [address] [phone] Free T4 1.06 ng/dL 0.71-1.85 TSH+Free T4 05/28/2012 [facility] Thyroid Stim 4.30 uIU/mL 0.49-4.[address] Hormone [place] [address] [phone] Free T4 1.17 ng/dL 0.71-1.85 TSH+Free T4 03/25/2012 [facility] Thyroid Stim 6.16 uIU/mL High 0.49-4.[address] Hormone [place] [address] [phone] Free T4 1.26 ng/dL 0.71-1.85 Laboratory test 03/25/2012 [facility] Calcium 9.2 mg/dL 8.5- 10.[address] [place] [address] [phone] TSH+Free T4 12/22/2011 [facility] Thyroid Stim 0.54 uIU/mL 0.49-4.[address] [place] [address] [phone] Free T4 1.47 ng/dL 0.71-1.85 Urine Culture 11/07/2011 [facility] Urine Culture See Note [address] [place] [address] [phone] Laboratory test 11/07/2011 [facility] Culture If See Note [address] [place] [place] [address] [phone] Laboratory test 11/07/2011 [facility] HCG Serum, NEGATIVE finding [address] Qualitative [place] [id number] [phone] CBC 11/07/2011 [facility] White Blood Count 8.5 K/uL 3.1-[address] [place] [address] [phone] Red Blood Count 4.88 M/uL 3.90-5.40 Hemoglobin 15.4 gm/dL 11.6-15.8 Hematocrit 45.8 % 36.0-46.1 Mean Cell Volume 93.9 fl 80.9-99.0 Mean Corpuscular HGB 31.6 pg 25.9-32.7 Mean Corpuscular HGB Conc 33.6 g/dL 30.8-34.3 Platelet Count 334 K/uL 155-360 Red Cell Distri Width %CV 12.9 % 11.7-14.4 Mean Platelet Volume 10.2 fL 8.9-12.4 Urinalysis With 11/07/2011 On [facility] Urine Color STRAW Yellow Microscopic [address] [place] [address] [phone] Urine Clarity CLEAR Clear Urine Glucose - Dipstick NEGATIVE mg/dL Negative Urine Bilirubin - Dipstick NEGATIVE Negative Urine Ketone NEGATIVE mg/dL Negative Urine Specific [place] <=1.005 Low 1.010-1.030 Urine Blood NEGATIVE Negative Urine PH 6.5 6.5-7.5 Urine Protein - Dipstick NEGATIVE mg/dL Negative Urine Urobilinogen - Dipstick 0.2 E.U./dL 0.2-1.0 Urine Nitrite - Dipstick NEGATIVE Negative Urine Leuk Esterase SMALL High Negative Urine RBC 0-2 rbc/hpf 0-7 Urine WBC 2-5 wbc/hpf 0-7 Urine Epithelial Cells FEW NONESEEN Urine Bacteria MODERATE NONESEEN High Urine Amorph Sediment SMALL Negative Laboratory test 11/07/2011 [facility] Urine Screen See Note [address] [place] [address] [phone] TSH+Free T4 10/09/2011 On License Of [facility] Thyroid Stim 0.04 Low 0.49- [address] Hormone uIU/mL .67 [place] [address] [phone] Free T4 1.47 ng/dL 0.71-1.85 Laboratory test 08/07/2011 On License Of [facility] Calcium 9.2 mg/dL 8.5- 10.1 finding [address] [place] [address] [phone] TSH+Free T4 08/07/2011 On License Of [facility] Thyroid Stim 0.23 Low 0.49- 4.[address] Hormone uIU/[place] [address] [phone] Free T4 1.30 ng/dL 0.71-1.85 TSH+Free T4 06/01/2011 [facility] Thyroid Stim 0.03 uIU/mL Low 0.49-4.[address] [place] [address] [phone] Free T4 1.35 ng/dL 0.71-1.85 TSH+Free T4 04/04/2011 [facility] Thyroid Stim 0.01 uIU/mL Low 0.49-4.[address] [place] [address] [phone] Free T4 1.19 ng/dL 0.71-1.85 TSH+Free T4 09/06/2010 On License Of [facility] Thyroid Stim 0.87 uIU/mL 0.49-4.[address] [place] [address] [phone] Free T4 0.82 ng/dL 0.71-1.85 32 TSH+Free T4 06/06/2010 [facility] TSH Thyroid 0.53 IU/mL Low 0.66-5.[address] Stimulating [place] [address] T4 Free Thyroxine 1.4 mg/dL 0.6-1.7 TSH+Free T4 12/06/2009 [facility] TSH Thyroid 3.3 IU/mL 0.66- 5.[address] [place] [address] T4 Free Thyroxine 1.3 mg/dL 0.6-1.7 TSH+Free T4 10/05/2009 [facility] TSH Thyroid 18.0 IU/mL High 0.66-5.[address] [place] [address] T4 Free Thyroxine 1.6 mg/dL 0.6-1.7 TSH+Free T4 07/26/2009 [facility] Thyroid Stim 7.56 uIU/mL High 0.49-4.[address] [place] [address] [phone] Free T4 0.91 ng/dL 0.71-1.85 TSH+Free T4 04/27/2009 [facility] TSH Thyroid 1.2 IU/mL 0.66- 5.[address] [place] [address] T4 Free Thyroxine 2.3 mg/dL High 0.6-1.7 TSH+Free T4 03/23/2009 [facility] TSH Thyroid 16.0 IU/mL High 0.66-5.[address] [place] [address] T4 Free Thyroxine 1.2 mg/dL 0.6-1.7 TSH+Free T4 12/22/2008 [facility] TSH Thyroid 1.5 IU/mL 0.66- 5.[address] [place] [address] T4 Free Thyroxine 1.3 mg/dL 0.6-1.7 TSH+Free T4 09/21/2008 [facility] TSH Thyroid 0.98 IU/mL 0.66- 5.[address] [place] [address] T4 Free Thyroxine 1.2 mg/dL 0.6-1.7 TSH+Free T4 07/28/2008 [facility] TSH Thyroid 10.2 IU/mL High 0.66-5.[address] [place] [address] T4 Free Thyroxine 1.2 mg/dL 0.6-1.7 Laboratory test 07/08/2008 On License Of [facility] Thyroid Stim 7.78 uIU/mL High 0.49-4.[address] [place] [address] [phone] Free T4 0.98 ng/dL 0.71-1.85 1 [id number] SEE RESULT BELOW Name: CAROLANN LORD : [address]: Jeff Dennis MD Acct: [id number] Unit: [id number] AGE: 43 Location: [facility] Re10/10/18 SEX: F Status: REG REF SPEC: [id number] MAGGIE: 10/10/18-1304 [facility] DR: Jeff Dennis MD REQ: [id number] RECD: 10/10/18095 STATUS: SOUT _ ORDERED: LEVEL 4/3, Leukemia/Lympho, TOUCH PREP COMMENTS: [id number] ADDENDUM Flow cytometry has been performed at [facility], [place], [place]. The testing reveals: FINAL DIAGNOSIS: Specimen Source: Lymph node, left supraclavicular Flow cytometry immunophenotypic analysis: No evidence of an immunophenotypically abnormal cell population. Interpretative data: Lymphocytes: 100% of gated events B-cells: 22% of lymphs; kappa:lambda within normal limits T-cells/NK cells: No aberrant population detected. Markers tested: CD3, CD5, CD7, CD10, CD19, CD20, CD23, CD45, kappa surface light chains, lambda surface light chains, 7-AAD. Quality Assessment: Acceptable Viability: Acceptable Viable lymphocytes (7-AAD): 97% Specimen received within validated guidelines. A Huerta-Giemsa stained slide prepared from the flow cytometry specimen was examined for quality purposes. Electronically signed by: Rubia Church MD 10/14/18 1024 Technical component performed by: [place] [address] Precise Winder: Johnnie York II, MD, PhD. CONTINUED ON NEXT PAGE DEPARTMENT OF PATHOLOGY, [address] [place] [address] Garland Purcell M.D. Director [facility] # [id number] RUN DATE: 10/15/18 [facility] LAB LIVE PAGE 2 Patient: CAROLANN LORD Riri [id number] (Continued) ADDENDUM (Continued) Addendum Signed (signature on file) Rubia Church MD 1310 FINAL DIAGNOSIS 1. Vocal cord, left, biopsy: -- Benign skeletal muscle, salivary gland tissue, and respiratory mucosa. -- No evidence of neoplasia. 2. Vocal cord, right, biopsy: -- Benign respiratory mucosa. -- No evidence of neoplasia. 3. Left supraclavicular, biopsy: -- One benign lymph node. -- No evidence of metastatic or hematologic malignancy. PATHOLOGY SURGICAL CONSULT Frozen section (FS)/Touch Prep (TP)/Gross Consult (GC) TP) Mass, left supraclavicular, biopsy: a. Touch prep done. (EP) b. Lymphoid tissue present. (EP) c. Specimen sent for flow cytometry. (EP) CLINICAL HISTORY No history given CONTINUED ON NEXT PAGE DEPARTMENT OF PATHOLOGY, [address] [place] [address] Garland Purcell M.D. Director [facility] # [id number] RUN DATE: 10/15/18 [facility] LAB LIVE PAGE 3 Patient: CAROLANN LORD [id number] (Continued) GROSS DESCRIPTION (Continued) GROSS DESCRIPTION 1. The specimen is received in formalin labeled, Left Vocal Cord Biopsy, and consists of a 0.3 x 0.2 x 0.2 cm lou-brown irregular to polypoid soft tissue fragment admixed with red brown blood clot, which is filtered and submitted entirely in one cassette. 2. The specimen is received in formalin labeled, Right Vocal Cord Biopsy, and consists of a 0.3 x 0.2 x 0.1 cm lou-white irregular to polypoid soft tissue fragment, which is filtered and submitted entirely in one cassette. 3. The specimen is received fresh in normal saline labeled, Left Supraclavicular Mass, and consists of a 3.0 x 2.3 by up to 0.5 cm aggregate of white-pink to yellow brown focally cauterized fat and lymphoid tissue. Nutrition Aide sections submitted for flow cytometry and the remaining specimen is submitted in three cassettes. Signed by and Reported on: Rubia Church MD 10/14/18 1634 END OF REPORT DEPARTMENT OF PATHOLOGY, [address] [place] [address] Garland Purcell M.D. Director [facility] # [id number] 4 FINAL DIAGNOSIS: Specimen Source: Lymph node, left supraclavicular Flow cytometry immunophenotypic analysis: No evidence of an immunophenotypically abnormal cell population. Interpretative data: Lymphocytes: 100% of gated events B-cells: 22% of lymphs; kappa:lambda within normal limits T-cells/NK cells: No aberrant population detected. Markers tested: CD3, CD5, CD7, CD10, CD19, CD20, CD23, CD45, kappa surface light chains, lambda surface light chains, 7-AAD. Quality Assessment: Acceptable Viability: Acceptable Viable lymphocytes (7-AAD): 97% Specimen received within validated guidelines. A Huerta-Giemsa stained slide prepared from the flow cytometry specimen was examined for quality purposes. Electronically signed by: Rubia Church MD 10/14/18 1024 Technical component performed by: [place] [address] Precise Winder: Johnnie York II, MD, PhD. 5 [id number] 6 SEE RESULT BELOW Name: CAROLANN LORD : [address]: Jeff Dennis MD Acct: [id number] Unit: [id number] AGE: 43 Location: [facility] Re09/03/18 SEX: F Status: REG REF SPEC: [id number] MAGGIE: 09/03/18-[address]: Jeff Dennis MD REQ: [id number] RECD: 09/04/18-1036 STATUS: SOUT _ ORDERED: FNA INTERP [facility], LEVEL 4 COMMENTS: [id number] FINAL DIAGNOSIS Supraclavicular mass, left, fine needle aspirate: --Non-diagnostic specimen. --Mostly blood with a few lymphocytes. A cell block was prepared in the evaluation of this specimen. Smears and cell block reveal similar findings. A. SUPRACLAVICULAR LEFT - LEFT SUPRCLAVICULAR FINE NEEDLE ASPIRATION CLINICAL HISTORY Left supraclavicular mass. GROSS DESCRIPTION 1 Alcohol fixed slide(s) received from clinician, 5 Air dried slide(s)( 4stained,1 unstained) and needle rinse in formalin for cell block. Signed by and Reported on: Rubia Church MD 09/06/18 1406 END OF REPORT DEPARTMENT OF PATHOLOGY, [address] [place] [address] Garland Purcell M.D. Director [facility] # [id number] 7 E03.9 8 EO3.9 9 E03.9 10 E03.9,E06.9 11 E03.9 12 J31.0 J32.9 13 Levels of Specific IgE Class Description of Class ----- < 0.10 0 Negative 0.10 - 0.31 0/I Equivocal/Low 0.32 - 0.55 I Low 0.56 - 1.40 II Moderate 1.41 - 3.90 III High 3.91 - 19.00 IV Very High 19.01 - 100.00 V Very High >100.00 Very High 14 Test(s) [id number]-[id number]-EpM Cockroach, Malian; 260107- K165-MxR Sal Daniel were developed and had performance characteristics determined by [employer]. These tests have not been cleared or approved by the U.S. Food and Drug Administration. The FDA has determined that such clearance or approval is not necessary. These tests are used for clinical purposes. These should not be regarded as investigational or for research. 15 Performed at: [address] [id number] [employer] Operator: Johnnie Harley MD, Phone: [phone] 16 E03.9 17 [id number] 18 [id number] 19 E03.9,E07.9 20 E03.9 21 A low TSH should not be the sole basis for diagnosing primary hyperthyroidism, or primary hypopituitary function. Additional tests are suggested for confirmation. 22 A low TSH should not be the sole basis for diagnosing primary hyperthyroidism, or primary hypopituitary function. Additional tests are suggested for confirmation. 23 A low TSH should not be the sole basis for diagnosing primary hyperthyroidism, or primary hypopituitary function. Additional tests are suggested for confirmation. 24 COLONY COUNT ! 50,000 - 60,000 CFU/ml Organism 1 ! URETHRAL PRISCILA 25 CULTURE TO FOLLOW 26 11/07/11 LAB.OPT Deleted by [facility] 27 A low TSH should not be the sole basis for diagnosing primary hyperthyroidism, or primary hypopituitary function. Additional tests are suggested for confirmation. 28 A low TSH should not be the sole basis for diagnosing primary hyperthyroidism, or primary hypopituitary function. Additional tests are suggested for confirmation. 29 A low TSH should not be the sole basis for diagnosing primary hyperthyroidism, or primary hypopituitary function. Additional tests are suggested for confirmation. 30 Result confirmed by repeat analysis. A low TSH should not be the sole basis for diagnosing primary hyperthyroidism, or primary hypopituitary function. Additional tests are suggested for confirmation. 31 QUERY: @[facility] Pat ID: [id number] QUERY: @EMR Req #: [id number] QUERY: @[facility] Pat ID: [id number] QUERY: @EMR Req #: [id number] Procedures Date Code Description Status 10/10/2018 77937 Biops.Or Exc.Deep Cerv. Node Completed 10/10/2018 09207 Laryngoscopy,Dir.W.Oper.Microscop Completed 10/10/2018 69850 Anesthesia, Neck Organ Surgery Not Otherwise Spec 1Yr Or Completed Older 09/10/2018 93346 Laryngoscopy W/ Stroboscopy Completed 09/03/2018 37759 Fine Needle Aspiration Biopsy Inlcd Ultrasound Guidance Completed 07/30/2018 59708 Ultrasound Head/Neck Completed 01/01/2018 30921 Ultrasound Head/Neck Completed 01/01/2018 97065 Nasal Endoscopy, Diag. Completed 09/21/2017 20998 Fiberoptic Laryngoscopy,Diag. Completed 07/24/2017 86077 Ultrasound Head/Neck Completed 05/14/2017 53355 Laryngoscopy W/ Stroboscopy Completed 02/08/2017 89052 Laryngoscopy W/ Stroboscopy Completed 11/29/2016 32178 Laryngoscopy W/ Stroboscopy Completed 10/05/2016 86787 Ultrasound Head/Neck Completed 10/05/2016 73147 Laryngoscopy W/ Stroboscopy Completed 09/04/2016 96943 Laryngoscopy W/ Stroboscopy Completed 06/28/2016 42077 Ultrasound Head/Neck Completed 06/28/2016 70804 Laryngoscopy W/ Stroboscopy Completed 12/09/2015 15344 Ultrasound Head/Neck Completed 11/12/2014 14537 Ultrasound Head/Neck Completed 10/21/2014 74787 Sleep Staging 4Or More Para Completed 04/03/2014 90340 Ultrasound Head/Neck Completed 04/03/2014 59474 Fiberoptic Laryngoscopy,Diag. Completed 01/21/2014 57812 Ultrasound Head/Neck Completed 01/21/2014 08673 Laryngoscopy W/ Stroboscopy Completed 04/08/2013 53308 Ultrasound Head/Neck Completed 04/08/2013 71879 Laryngoscopy W/ Stroboscopy Completed 09/21/2012 95744 Laryngoscopy W/ Stroboscopy Completed 09/21/2012 19123 Ultrasound Head/Neck Completed 11/09/2011 99249 Esophagoscopy/Diagnostic Completed 11/09/2011 85267 Laryngoscopy/Indirect/Diag. Completed 10/09/2011 98852 Ultrasound Head/Neck Completed 08/07/2011 86281 Ultrasound Head/Neck Completed 10/05/2009 07475 Ultrasound Head/Neck Completed 07/07/2008 58975 Ultrasound Head/Neck Completed 07/07/2008 25299 Fiberoptic Laryngoscopy,Diag. Completed Encounters Type Date Location Provider Dx Diagnosis Office Visit 09/10/2018 Main Office Jeff Dennis M.D. E03.9 Hypothyroidism, 11:15a unspecified J38.3 Other diseases of vocal cords R22.1 Localized swelling, mass and lump, neck Office Visit 08/23/2018 8:30a Main Office Jeff Dennis, E03.9 Hypothyroidism, M.D. unspecified E06.9 Thyroiditis, unspecified R22.1 Localized swelling, mass and lump, neck Office Visit 07/30/2018 4:15p Main Office Jeff Dennis, E03.9 Hypothyroidism, M.D. unspecified E06.9 Thyroiditis, unspecified R22.1 Localized swelling, mass and lump, neck H60.92 Unspecified otitis externa, left ear Office Visit 04/29/2018 4:15p Main Office Jeff Dennis, E03.9 Hypothyroidism, M.D. unspecified J34.2 Deviated nasal septum K21.9 Gastro-esophageal reflux disease without esophagitis Office Visit 01/01/2018 4:30p Main Office Jeff Dennis, J34.2 Deviated nasal M.D. septum J34.3 Hypertrophy of nasal turbinates E03.9 Hypothyroidism, unspecified R22.1 Localized swelling, mass and lump, neck Office Visit 12/05/2017 4:00p Main Office Jeff Dennis, E03.9 Hypothyroidism, M.D. unspecified R22.1 Localized swelling, mass and lump, neck Office Visit 09/21/2017 8:45a Main Office Jeff Dennis E03.9 Hypothyroidism, M.D. unspecified K21.9 Gastro-esophageal reflux disease without esophagitis E06.9 Thyroiditis, unspecified Office Visit 07/24/2017 4:15p Main Office Jeff Dennis E03.9 Hypothyroidism, M.D. unspecified K21.9 Gastro-esophageal reflux disease without esophagitis E06.9 Thyroiditis, unspecified Office Visit 05/14/2017 4:15p Main Office Jeff Dennis, K21.9 Gastro- esophageal reflux M.D. disease without esophagitis E03.9 Hypothyroidism, unspecified R49.0 Dysphonia J38.4 Edema of larynx Office Visit 02/08/2017 3:45p Main Office Jeff Dennis, E03.9 Hypothyroidism, M.D. unspecified K21.9 Gastro-esophageal reflux disease without esophagitis J35.03 Chronic tonsillitis and adenoiditis J38.3 Other diseases of vocal cords Office Visit 11/29/2016 3:45p Main Office Jeff Dennis, E03.9 Hypothyroidism, M.D. unspecified R49.0 Dysphonia K21.9 Gastro-esophageal reflux disease without esophagitis J35.8 Other chronic diseases of tonsils and adenoids Office Visit 10/05/2016 9:15a Main Office Jeff Dennis, E03.9 Hypothyroidism, M.D. unspecified R49.0 Dysphonia E06.9 Thyroiditis, unspecified R59.0 Localized enlarged lymph nodes Office Visit 09/04/2016 8:30a Main Office Jeff Dennis, E03.9 Hypothyroidism, M.D. unspecified K21.9 Gastro-esophageal reflux disease without esophagitis R49.0 Dysphonia Office Visit 06/28/2016 1:15p Main Office Jeff Dennis, E03.9 Hypothyroidism, M.D. unspecified E06.9 Thyroiditis, unspecified K21.9 Gastro-esophageal reflux disease without esophagitis R49.0 Dysphonia Office Visit 12/09/2015 11:30a Main Office Jeff Dennis, E03.9 Hypothyroidism, M.D. unspecified E06.9 Thyroiditis, unspecified Office Visit 06/01/2015 3:15p Main Office Jeff Dennis, E07.9 Disorder of thyroid, M.D. unspecified E06.9 Thyroiditis, unspecified K21.9 Gastro-esophageal reflux disease without esophagitis Z72.0 Tobacco use Office Visit 11/12/2014 3:15p Main Office Jeff Dennis, 244.9 Hypothyroidism Other M.D. Unspec 246.9 Thyroid Disorders Unspec 780.50 Sleep Disturbance Unspec 245.9 Thyroiditis Unspec 780.52 Insomnia Unspecified Office Visit 09/11/2014 2:45p Main Office Jeff Dennis, 246.9 Thyroid Disorders M.D. Unspec 244.9 Hypothyroidism Other Unspec 780.50 Sleep Disturbance Unspec Office Visit 07/14/2014 1:15p Main Office Jeff Dennis, 246.9 Thyroid Disorders M.D. Unspec 244.9 Hypothyroidism Other Unspec Office Visit 04/03/2014 2:15p Main Office Jeff Dennis, 246.9 Thyroid Disorders M.D. Unspec 784.49 Voice Disturbance Other 245.9 Thyroiditis Unspec 530.81 Esophageal Reflux 783.21 Loss Of Weight Office Visit 01/21/2014 3:15p Main Office Jeff Dennis, 246.9 Thyroid Disorders M.D. Unspec 252.1 Hypoparathyroidism 784.49 Voice Disturbance Other 478.5 Vocal Cord Diseases Other 470 Deviated Nasal Septum 530.81 Esophageal Reflux Office Visit 08/05/2013 10:15a Main Office Colleen Wright, 461.0 Sinusitis Acute PA Maxillary 461.2 Sinusitis Acute Ethmoidal Office Visit 06/09/2013 10:45a Main Office Jeff Dennis, 246.9 Thyroid Disorders M.D. Unspec 530.81 Esophageal Reflux 784.49 Voice Disturbance Other 465.8 Upper Respiratory Infections Acute Other Multiple Sites Office Visit 04/08/2013 1:45p Main Office Jeff Dennis, 246.9 Thyroid Disorders M.D. Unspec 784.2 Mass/Swelling, Neck Or Head 530.81 Esophageal Reflux 784.49 Voice Disturbance Other 470 Deviated Nasal Septum Office Visit 09/21/2012 10:15a Main Office Jeff Dennis, 246.9 Thyroid Disorders M.D. Unspec 530.81 Esophageal Reflux 784.49 Voice Disturbance Other 244.9 Hypothyroidism Other Unspec 470 Deviated Nasal Septum Office Visit 12/22/2011 11:00a Main Office Adriana 784.49 Voice Disturbance BERNARD Macias Other 530.81 Esophageal Reflux 246.9 Thyroid Disorders Unspec Office Visit 10/09/2011 10:15a Main Office Jeff Dennis, 246.9 Thyroid Disorders M.D. Unspec 244.9 Hypothyroidism Other Unspec Office Visit 08/07/2011 11:15a Main Office Jeff Dennis, 244.9 Hypothyroidism Other M.D. Unspec 246.9 Thyroid Disorders Unspec Office Visit 04/27/2010 1:15p Main Office Jeff Dennis M.D. 959.09 Injury Face And Neck E906.0 Bite Dog Office Visit 10/05/2009 11:00a Main Office Jeff Dennis, 246.9 Thyroid Disorders M.D. Unspec 244.9 Hypothyroidism Other Unspec Office Visit 12/22/2008 4:00p Main Office Jeff Dennis, 246.9 Thyroid Disorders M.D. Unspec 244.9 Hypothyroidism Other Unspec Office Visit 07/07/2008 11:15a Main Office Jeff Dennis, 246.9 Thyroid Disorders M.D. Unspec 244.9 Hypothyroidism Other Unspec 470 Deviated Nasal Septum
[2019-01-09 17:29] VITALS: BP 104/66
--- NOTE | 2019-01-09 18:16 | UC ---
Hand/Wrist HPI - HPI Summary HPI Summary: Pt presents with c/o left wrist and forearm pain and swelling. 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 Pt reports that today at work as she was packing she noticed that her left distal forearm along radial aspect appeared swollen, stiff and painful. Pt denies injury. Pain is worse with movement. - History Of Current Complaint Chief Complaint: UCUpperExtremity Stated Complaint: LEFT WRIST COMPLAINT Time Seen by Provider: 01/09/19 17:49 Hx Obtained From: Patient Hx Last Menstrual Period: n/a ?: No Onset/Duration: Sudden Onset, Still Present Severity Initially: Moderate Severity Currently: Moderate Pain Intensity: 8 Character Of Pain: Dull, Aching, Stiffness Aggravating Factor(s): Movement, Lifting, Flexion, Extension Alleviating Factor(s): Rest Associated Signs And Symptoms: Positive: Swelling Related History: Dominant Hand Right - Risk Factors Compartment Syndrome Risk Factors: Pain - Allergies/Home Medications Allergies/Adverse Reactions: Allergies Allergy/AdvReac Type Severity Reaction Status Date / Time guaifenesin [From Robitussin] Allergy Vomiting Verified 01/09/19 17:29 morphine Allergy See Comment Verified 01/09/19 17:29 nickel Allergy Rash Verified 01/09/19 17:29 Home Medications: Home Medications Ibuprofen TAB* [Motrin TAB* 800 MG] 800 mg PO ONCE 01/09/19 [History Confirmed 01/09/19] Pantoprazole TAB * [Protonix TAB*] 40 mg DAILY 01/09/19 [History Confirmed 01/09] PMH/Surg Hx/FS Hx/Imm Hx Previously Healthy: Yes - Surgical History Surgical History: Yes Surgery Procedure, Year, and Place: colonoscopy. endoscopic. histroscopic adiana. partial cervix removed. HYSTERECTOMY--03/2014. Lymph removal 10/11 - Family History Known Family History: Positive: Hypertension, Respiratory Disease, Other - MS - mom and two aunts Negative: Diabetes - Social History Occupation: Employed Full-time Lives: With Family Alcohol Use: None Substance Use Type: None Smoking Status (MU): Heavy Every Day Tobacco Smoker Type: Cigarettes Amount Used/How Often: 1 PPD Length of Time of Smoking/Using Tobacco: SINCE AGE 20 Have You Smoked in the Last Year: Yes Household Exposure Type: Cigarettes - Immunization History Most Recent Influenza Vaccination: none 2016 Vaccination Up to Date: Yes Review of Systems All Other Systems Reviewed And Are Negative: Yes Constitutional: Positive: Negative Skin: Positive: Negative Eyes: Positive: Negative ENT: Positive: Negative Respiratory: Positive: Negative Cardiovascular: Positive: Negative Gastrointestinal: Positive: Negative Genitourinary: Positive: Negative Motor: Positive: Decreased ROM - left wrist and forearm Musculoskeletal: Positive: Arthralgia, Decreased ROM, Edema, Myalgia Neurological: Positive: Negative Psychological: Positive: Negative Is Patient Immunocompromised?: No Physical Exam Triage Information Reviewed: Yes Appearance: Well-Appearing Vital Signs: Initial Vital Signs Temp 98.9 F 01/09/19 17:27 Pulse 77 01/09/19 17:27 Resp 12 01/09/19 17:27 BP 104/66 01/09/19 17:27 Pulse Ox 99 01/09/19 17:27 Vital Signs Reviewed: Yes Eye Exam: Normal ENT: Positive: Hearing grossly normal Dental Exam: Normal Neck exam: Normal Respiratory Exam: Normal Respiratory: Positive: No respiratory distress Musculoskeletal: Positive: Strength Limited @ - left wrist and forearm, ROM Limited @, Edema @ - distal left forearm radial aspect Neurological Exam: Normal Psychological Exam: Normal Skin Exam: Normal Diagnostics - Radiology No standard instances Radiology Interpretation Completed By: ED Physician - negative for fracture Hand/Wrist Course/Dx - Differential Dx/Diagnosis Differential Diagnosis/HQI/PQRI: Fracture, Sprain, Strain, Tendonitis Provider Diagnosis: Tendinitis Discharge - Sign-Out/Discharge Documenting (check all that apply): Patient Departure All imaging exams completed and their final reports reviewed: No - Discharge Plan Condition: Stable Disposition: HOME Patient Education Materials: Tendinitis (ED), R.I.C.E. Treatment (ED), Safe Use of NSAIDs (ED) Referrals: Mamta Newton MD [Primary Care Provider] - If Needed Crispin Denson MD [Medical Doctor] - If Needed Porfirio Alicia MD [Medical Doctor] - If Needed - Billing Disposition and Condition Condition: STABLE Disposition: Home
--- NOTE | 2019-01-10 07:17 | ED ---
Progress - Progress Note Progress Note: Radiology read as scapholunate ligament tear: Please call the patient and inform them not to do work with the left hand. The patient needs to return here this morning for a splint, or she needs to go see Orthopedic surgery/hand surgery this morning at the office [facility]. Please call to arrange appointment for them with Dr Denson/Marisabel whoever is available this morning. Course/Dx - Diagnoses Provider Diagnoses: Tendinitis Discharge - Sign-Out/Discharge Documenting (check all that apply): Patient Departure All imaging exams completed and their final reports reviewed: Yes - Discharge Plan Condition: Stable Disposition: HOME Patient Education Materials: Tendinitis (ED), R.I.C.E. Treatment (ED), Safe Use of NSAIDs (ED) Referrals: Mamta Newton MD [Primary Care Provider] - If Needed Crispin Denson MD [Medical Doctor] - If Needed Porfirio Alicia MD [Medical Doctor] - If Needed - Billing Disposition and Condition Condition: STABLE Disposition: Home
== END 2019-01-09 18:23 | disposition home or self-care (01) ==
LOC: UCCORT 17:17
DX: M77.9 Enthesopathy, unspecified (principal); F17.210 Nicotine dependence, cigarettes, uncomplicated
CPT/HCPCS: 99212; G0463

== ENCOUNTER 2019-03-27 08:14 | Day surgery (SDC) | payer OTHER ==
[~2019-03-27 08:14] MED LIST: Buffered Lidocaine 1% SYRIN* 1 ML/SYRINGE INTRADERM ONE; Famotidine IV* 10 MG/ML 2 ML (20 mg) IV ONE; Lactated Ringers 1000 ML Bag* 1,000 ML IV SCH
[2019-03-27] MEDS ORDERED: Famotidine IV* 10 MG/ML 2 ML (20 mg) ONE (08:23)
[2019-03-27] MEDS ORDERED: Midazolam* 1 MG/ML 5 ML VIAL (5 MG) ONE (08:46)
[2019-03-27] MEDS ORDERED: Bupivacaine 0.25% SDV* 30 ML ONE (09:11)
[2019-03-27] MEDS ORDERED: Propofol* 10 MG/ML 20 ML BTL ONE ×2 (09:16→09:29)
[2019-03-27] MEDS ORDERED: Ketorolac INJ* 30 MG/ML 1 ML VIAL ONE (09:16)
[2019-03-27] MEDS ORDERED: Lidocaine 2% PF * 5 ML VIAL ONE (09:16)
[2019-03-27] MEDS ORDERED: Ondansetron INJ* 2 MG/ML VIAL ONE (09:16)
[2019-03-27] MEDS ORDERED: fentaNYL* 50 MCG/ML 2 ML VIAL (100 MCG VIAL) ONE (09:17)
[2019-03-27] MEDS ORDERED: Naloxone* 0.4 MG/ML 1 ML VIAL IV PRN (10:22)
[2019-03-27] MEDS ORDERED: Acetaminophen TAB* 325 MG PO PRN (10:22)
[2019-03-27 10:47] VITALS: BP 113/73
--- NOTE | 2019-03-27 13:35 | OP ---
DATE OF OPERATION: 03/27/19 [facility] DATE OF : 79 SURGEON: Frederic Petit MD. VACUUM CONDITIONER OPERATOR: BERNARD Mendoza. ANESTHESIOLOGIST: Dr. Butler. ANESTHESIA: Local MAC. PRE-OP DIAGNOSES: 1. Left wrist de Quervain's disease. 2. 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 POST-OP DIAGNOSES: 1. Left wrist de Quervain's disease. 2. 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 OPERATIVE PROCEDURES: 1. Left de Quervain's release. 2. Release of second dorsal compartment with tenosynovectomy of the second dorsal compartment. INDICATIONS: Ms. Cummings has pretty severe intersection syndrome and de Quervain 's. We talked about her treatment options. She had wanted to proceed with the release. ESTIMATED BLOOD LOSS: 2 mL. COMPLICATIONS: None. FINDINGS: See above and below. DESCRIPTION OF PROCEDURE: Ms. Cummings was seen in the preoperative holding area. The correct site, side, and procedures were identified. We came back to the operating room. The arm was then prepped and draped in the usual fashion. I anesthetized the operative area with 0.25% plain Marcaine. A time-out was performed. The arm was exsanguinated with the Esmarch and the tourniquet was inflated to 225 mmHg. I first made a 2 cm transverse incision just proximal to the radial styloid. Dissection was carried down. Full thickness flaps were bluntly raised off the tendon sheath. Ragnell retractors were placed. First dorsal compartment tendon sheath was released just off its dorsal margin. This release was completed distally and proximally with a tenotomy scissors. There was a little bit of tenosynovitis that was all excised. Once I had completed the release, we irrigated out the wound. I then made a 2-3 cm transverse incision over the intersection of the first and second dorsal compartment tendons. Dissection was carried down. The fascia overlying the musculature of the first dorsal compartment was opened. The tendon sheath all about the intersection of the first and second dorsal compartment was all incised and excised. There was quite a bit of tenosynovitis that was all excised. There was a small accessory slit to the ECRL tendon and the sheath over that was released and that tendon was just excised. The release was carried all the way down to the extensor retinaculum. I released the first 20% of the extensor retinaculum. The wrist was extended up and the tendons delivered proximal to that. A full tenosynovectomy was performed. It was carried out proximal to the intersection of the first and second dorsal compartments as well. Once I had everything looking completely clean, we irrigated out the wound. Incisions were closed with 4-0 Monocryl suture and Steri-Strips. A soft dressing was applied and she was taken to the recovery room in stable condition. [id number]/[facility] #: [id number] ROGER
== END 2019-03-27 10:59 | disposition home or self-care (01) ==
LOC: OREAST 08:14
PROVIDERS: ATTEND Orthopaedic Surgery Hand Surgery
DX: M65.4 Radial styloid tenosynovitis [de Quervain] (principal); M65.832 Other synovitis and tenosynovitis, left forearm; E03.9 Hypothyroidism, unspecified; K21.9 Gastro-esophageal reflux disease without esophagitis; I10 Essential (primary) hypertension; J45.909 Unspecified asthma, uncomplicated; Z72.0 Tobacco use
CPT/HCPCS: J1885; J2250; J2405; J2704; J3010; J3490

== ENCOUNTER 2019-04-10 13:55 | Emergency (ER) | payer OTHER ==
--- OUTSIDE RECORDS SUMMARY | 2019-04-10 14:11 | XMS REPORT | Continuity of Care Document ---
:1975 External Reference #:[id number] Author Name Frederic Petit MD (transmitted by agent of provider Oscar Howell) Address [address] [place] [address] Care Team Providers Name Role Phone Mamta Newton M.D. - Internal Medicine Care Team Information Histology Aide Problems Active Problems Provider Date Radial styloid tenosynovitis Frederic Petit MD Onset: 03/14/2019 Tenosynovitis of hand Frederic Petit MD Onset: 03/14/2019 Social History Type Date Description Comments Sex Unknown Tobacco Use Start: Unknown Current Cigarette Smoker 1 Pack Daily ETOH Use Denies alcohol use Tobacco Use Start: Unknown Light tobacco smoker (10 or fewer cigarettes/day) Recreational Drug Use Denies Drug Use Smoking Status Reviewed: 04/04/19 Light tobacco smoker (10 or fewer cigarettes/day) Exercise Type/Frequency Does not exercise Allergies, Adverse Reactions, Alerts Active Allergies Reaction Severity Comments Date Ethanol 05/08/2017 Guaifenesin 05/08/2017 Morphine 05/08/2017 Nickel severe rash 05/08/2017 Medications Active Medications SIG Qnty Indications Ordering Date Provider Tramadol HCL 1-2 tablets by 20tabs Frederic Petit, 03/27/2019 50mg Tablets mouth every 6 MD hours as needed pain Acyclovir take 1 tablet Unknown 400mg Tablets by mouth every other day Cyclobenzaprine HCL one by mouth Unknown 10mg three times a Tablets day as needed spasm Acetaminophen 2 tabs 3x a day Unknown 500mg Tablets as needed Ibuprofen 2 po as needed Unknown 200mg Tablets Levothyroxine Sodium 1 tab daily Unknown 112mcg Tablets Naproxen take 1 tablet Unknown 500mg Tablets by mouth twice a day if needed Pantoprazole Sodium 1 tab by mouth Jeff Dennis MD 40mg daily Tablets DR Medications Administered in Office Medication SIG Qnty Indications Ordering Provider Date Celestone 3 mg and 3mg Crispin Denson MD 01/10/2019 Injection Celestone 3 mg and 3mg Crispin Denson MD 09/25/2018 Injection Celestone 3 mg and 3mg Crispin Denson MD 05/08/2017 Injection Immunizations Description No Information Available Vital Signs Date Vital Result Comment 04/04/2019 1:18pm Height 65 inches 5'5" Weight 152.00 lb Heart Rate 84 /min BP Systolic Sitting 118 mmHg BP Diastolic Sitting 84 mmHg Respiratory Rate 18 /min Body Temperature 98.7 F Pain Level 7 O2 % BldC Oximetry 98 % BMI (Body Mass Index) 25.3 kg/m2 03/14/2019 12:55pm Height 65 inches 5'5" Weight 151.38 lb Heart Rate 89 /min BP Systolic Sitting 118 mmHg BP Diastolic Sitting 70 mmHg Respiratory Rate 16 /min Pain Level 8 O2 % BldC Oximetry 98 % BMI (Body Mass Index) 25.2 kg/m2 Results Description No Information Available Procedures Date Code Description Status 03/27/2019 07127 Synovectomy,Extensor Tendon Sheath,Wrist,Single Completed Compartment 03/27/2019 85752 Synovectomy,Extensor Tendon Sheath,Wrist,Single Completed Compartment 03/27/2019 38868 Dequervains-Tendon Sheath Incision/Extensor Sheath,Wrist Completed 03/27/2019 63929 Dequervains-Tendon Sheath Incision/Extensor Sheath,Wrist Completed 01/10/2019 39336 Inject Tendon Sheath Or Ligament Aponeurosis Eg Plantar Completed Fascia Medical Devices Description No Information Available Encounters Type Date Location Provider Dx Diagnosis Office Visit 03/14/2019 [facility] Frederic Petit M65.832 Other synovitis 1:00p at [facility] and tenosynovitis, left forearm M65.4 Radial styloid tenosynovitis [de Quervain] Office Visit 02/25/2019 [facility] M65.832 Other synovitis and 10:30a [facility] tenosynovitis, left [place] forearm Office Visit 01/14/2019 [facility] M65.832 Other synovitis and 10:45a [facility] tenosynovitis, left [place] forearm Office Visit 01/10/2019 [facility] Mar[facility] M65.832 Other synovitis and 10:15a [facility] tenosynovitis, left [place] forearm Assessments Date Code Description Provider 03/27/2019 M65.832 Other synovitis and tenosynovitis, left forearm BERNARD Mendoza 03/27/2019 M65.832 Other synovitis and tenosynovitis, left forearm Frederic Petit MD 03/27/2019 M65.4 Radial styloid tenosynovitis [de Quervain] BERNARD Mendoza 03/27/2019 M65.4 Radial styloid tenosynovitis [de Quervain] Frederic Petit MD 03/14/2019 M65.832 Other synovitis and tenosynovitis, left forearm Frederic Petit MD 03/14/2019 M65.4 Radial styloid tenosynovitis [de Quervain] Frederic Petit MD 02/25/2019 M65.832 Other synovitis and tenosynovitis, left forearm Crispin Denson MD 01/14/2019 M65.832 Other synovitis and tenosynovitis, left forearm Crispin Denson MD 01/10/2019 M65.832 Other synovitis and tenosynovitis, left forearm Crispin Denson MD Plan of Treatment Future Appointment(s):05/09/2019 9:45 am - Frederic Petit MD at [facility] Functional Status Description No Information Available Mental Status Description No Information Available Referrals Description No Information Available
--- OUTSIDE RECORDS SUMMARY | 2019-04-10 14:11 | XMS REPORT | Continuity of Care Document ---
:1975 External Reference #:[id number] Author Name Crispin Denson MD (transmitted by agent of provider Oscar Howell) Address [address] [place] [address] Care Team Providers Name Role Phone Mamta Newton M.D. 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 Problems Description No Information Available Social History Type Date Description Comments Sex Unknown Tobacco Use Start: Unknown Current Cigarette Smoker 1 Pack Daily ETOH Use Denies alcohol use Tobacco Use Start: Unknown Light tobacco smoker (10 or fewer cigarettes/day) Recreational Drug Use Denies Drug Use Smoking Status Reviewed: 02/25/19 Light tobacco smoker (10 or fewer cigarettes/day) Exercise Type/Frequency Does not exercise Allergies, Adverse Reactions, Alerts Active Allergies Reaction Severity Comments Date Ethanol 05/08/2017 Guaifenesin 05/08/2017 Morphine 05/08/2017 Nickel severe rash 05/08/2017 Medications Active Medications SIG Qnty Indications Ordering Provider Date Acyclovir take 1 tablet Unknown 400mg Tablets [...] Available Vital Signs Date Vital Result Comment 02/25/2019 10:39am Height 65 inches 5'5" Heart Rate 74 /min BP Systolic Sitting 110 mmHg BP Diastolic Sitting 88 mmHg Respiratory Rate 16 /min Pain Level 8 O2 % BldC Oximetry 99 % 01/14/2019 10:31am Height 65 inches 5'5" Weight 143.00 lb Heart Rate 80 /min BP Systolic Sitting 120 mmHg Rue reg cuff BP Diastolic Sitting 80 mmHg Rue reg cuff Respiratory Rate 16 /min Pain Level 7 BMI (Body Mass Index) 23.8 kg/m2 Results Description No Information Available Procedures Date Code Description Status 01/10/2019 10336 Inject Tendon Sheath Or Ligament Aponeurosis Eg Plantar Completed Fascia 09/25/2018 04013 Inject/Drain Joint/Bursa Major W/O US Completed Medical Devices Description No Information Available Encounters Type Date Location Provider Dx Diagnosis Office Visit 01/14/2019 [facility] Crispin Denson, M65.832 Other synovitis 10:45a [facility] tenosynovitis, left forearm Office Visit 01/10/2019 [facility] Crispin Denson M65.832 Other [facility]ovitis 10:15[facility], [facility] Office Visit 09/25/2018 [facility] Crispin Denson M75.52 Bursitis of left 9:00a [facility] Assessments Date Code Description Provider 02/25/2019 M65.832 Other synovitis and tenosynovitis, left forearm Crispin Denson MD 01/14/2019 M65.832 Other synovitis and tenosynovitis, left forearm Crispin Denson MD 01/10/2019 M65.832 Other synovitis and tenosynovitis, left forearm Crispin Denson MD 09/25/2018 M75.52 Bursitis of left shoulder Crispin Denson MD Plan of Treatment Future Appointment(s):03/14/2019 1:00 pm - Frederic Petit MD at [facility]02/25/2019 - Crispin Denson, MDM65.832 Other synovitis and tenosynovitis, left forearmFollow up:Follow up: Petit for intersection/DeQ release Functional Status Description No Information Available Mental Status Description No Information Available Referrals Description No Information Available
[2019-04-10 14:19] VITALS: BP 107/67
--- NOTE | 2019-04-10 14:42 | ED ---
Throat Pain/Nasal Congestion - HPI Summary HPI Summary: 43 yr old female with the complaint of sinus pressure, post nasal drip, cough. Producing green sputum. No SOB. She has been ill for over a week. No fever or chills. No other complaints. - History of Current Complaint Chief Complaint: UCGeneralIllness Time Seen by Provider: 04/10/19 14:25 - Allergies/Home Medications Allergies/Adverse Reactions: Allergies Allergy/AdvReac Type Severity Reaction Status Date / Time guaifenesin [From Robitussin] Allergy Severe Vomiting Verified 04/10/19 14:19 morphine Allergy Severe See Comment Verified 04/10/19 14:19 nickel Allergy Severe Rash Verified 04/10/19 14:19 PMH/Surg Hx/FS Hx/Imm Hx Endocrine/Hematology History: Reports: Hx Thyroid Disease - hypo Denies: Hx Diabetes Cardiovascular History: Denies: Hx Hypertension, Hx Pacemaker/ICD Respiratory History: Reports: Hx Asthma GI History: Reports: Hx Gastroesophageal Reflux Disease, Other GI Disorders - gastroparesis, ulcerative colitis, slow stomach History: Denies: Hx Renal Disease Musculoskeletal History: Reports: Hx Arthritis, Hx Tendonitis - left wrist, 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 endoscopic. histroscopic [place]iana. partial cervix removed. HYSTERECTOMY--03/2014- [facility]([place] Lymph removal 10/11. vein release on L arm Hx Anesthesia Reactions: No Infectious Disease History: No Infectious Disease History: Reports: History Other Infectious Disease - herpes Denies: Traveled Outside the [place] in Last 30 Days - Family History Known Family History: Positive: Hypertension, Respiratory Disease, Other - MS - mom and two aunts Negative: Diabetes - Social History Occupation: Employed Full-time Alcohol Use: None Substance Use Type: Reports: None Smoking Status (MU): Heavy Every Day Tobacco Smoker Type: Cigarettes Amount Used/How Often: 1 PPD since 20 years old Length of Time of Smoking/Using Tobacco: SINCE AGE 20 Have You Smoked in the Last Year: Yes Review of Systems Constitutional: Negative Positive: Nasal Discharge Positive: Cough All Other Systems Reviewed And Are Negative: Yes Physical Exam Triage Information Reviewed: Yes Vital Signs On Initial Exam: Initial Vitals Temp Pulse Resp BP Pulse Ox 97.5 F 90 18 107/67 100 04/10/19 14:13 04/10/19 14:13 04/10/19 14:13 04/10/19 14:13 04/10/19 14:13 Vital Signs Reviewed: Yes Appearance: Positive: Well-Appearing, No Pain Distress Skin: Positive: Warm, Skin Color Reflects Adequate Perfusion Head/Face: Positive: Normal Head/Face Inspection Eyes: Positive: EOMI ENT: Positive: Normal ENT inspection, Nasal congestion, Sinus tenderness Neck: Positive: Nontender Respiratory/Lung Sounds: Positive: Clear to Auscultation, Breath Sounds Present Cardiovascular: Positive: RRR. Negative: Murmur Musculoskeletal: Positive: Strength/ROM Intact Neurological: Positive: Sensory/Motor Intact, Alert, Oriented to Person Place, Time, CN Intact II-III Psychiatric: Positive: Normal Diagnostics - Vital Signs Vital Signs Temp Pulse Resp BP Pulse Ox 04/10/19 14:13 97.5 F 90 18 107/67 100 - Laboratory Lab Statement: Any lab studies that have been ordered have been reviewed, and results considered in the medical decision making process. EENT Course/Dx - Course Course Of Treatment: 43 yr old with sinusitis. Rx with Augmentin - Diagnoses Provider Diagnoses: Bacterial sinusitis Discharge ED - Sign-Out/Discharge Documenting (check all that apply): Patient Departure All imaging exams completed and their final reports reviewed: No Studies - Discharge Plan Condition: Good Disposition: HOME Prescriptions: Amoxicillin/Clavulanate TAB* [Augmentin TAB 875*] 875 mg PO BID #20 tab Patient Education Materials: Sinusitis (ED) Referrals: Mamta Newton MD [Primary Care Provider] - - Billing Disposition and Condition Condition: GOOD Disposition: Home
[2019-04-10 14:49] LABS: Influenza A Molecular NEGATIVE (Negative); Influenza B Molecular NEGATIVE (Negative)
== END 2019-04-10 15:09 | disposition home or self-care (01) ==
LOC: UCCORT 13:55
DX: J32.9 Chronic sinusitis, unspecified (principal); Z88.5 Allergy status to narcotic agent; Z88.8 Allergy status to other drugs, medicaments and biological substances; F17.210 Nicotine dependence, cigarettes, uncomplicated
CPT/HCPCS: 87651; 99212; G0463

== ENCOUNTER 2019-10-09 09:56 | Emergency (ER) | payer OTHER ==
--- OUTSIDE RECORDS SUMMARY | 2019-10-09 10:03 | XMS REPORT | Continuity of Care Document ---
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 Problems Description No Information Available Social History Type Date Description Comments Sex Unknown Tobacco Use Start: Unknown Current Cigarette Smoker 1 1/2 Packs Daily ETOH Use Denies alcohol use Recreational Drug Use Denies Drug Use Tobacco Use Start: Unknown Heavy tobacco smoker (more than 10 cigarettes/day) Allergies, Adverse Reactions, Alerts Active Allergies Reaction Severity Comments Date Robitussin severe, vomiting 07/20/2011 Nickel rash 07/24/2011 Morphine 04/13/2014 Medications Active Medications SIG Qnty Indications Ordering Date Provider Metoclopramide HCL 4 tabs daily, 30 56tabs K31.84 Luis E Juarez, 2019 10mg mins before meals Tablets and at bedtime Enema Mineral Oil Administer per 399ml K59.04 Luis E Juarez, 09/23/2019 rectum for Enema constipation Miralax 1 tablespoon with 1020units K59.00 [place], 04/17/2017 3350NF Powder large glass of [facility] water every day Famotidine 1 by mouth every 30tabs R10.13 [place], 10/12/2016 20mg Tablets day in the evening [facility] (per pt prn) Ibuprofen 1 three times a 60tabs Unknown 800mg Tablets day as needed Acyclovir 1 tab by mouth bid Unknown 400mg Tablets Levothyroxine Sodium take 1 tablet by Unknown mouth once daily 112mcg Tablets maximum daily dose of 1 Immunizations Description No Information Available Vital Signs Date Vital Result Comment 09/23/2019 8:21am BP Systolic 111 mmHg BP Diastolic 74 mmHg Body Temperature 98.3 F Heart Rate 79 /min Respiratory Rate 17 /min Height 65 inches 5'5" Weight 145.38 lb Pain Level 7 BMI (Body Mass Index) 24.2 kg/m2 BSA (Body Surface Area) 1.73 m2 [place] body weight in kilograms 57 kg 05/27/2018 3:59pm BP Systolic Sitting Left Arm 114 mmHg BP Diastolic Sitting Left Arm 72 mmHg Heart Rate 79 /min Respiratory Rate 16 /min Height 65 inches 5'5" Weight 132.00 lb BMI (Body Mass Index) 22.0 kg/m2 BSA (Body Surface Area) 1.66 m2 [place] body weight in kilograms 57 kg O2 % BldC Oximetry 98 % Results Description No Information Available Procedures Date Code Description Status 06/24/2018 13910526 Colonoscopy Completed 02/21/2010 59633419 Colonoscopy Completed 04/27/2005 44174578 Colonoscopy Completed Medical Devices Description No Information Available Encounters Description No Information Available Assessments Date Code Description Provider 09/23/2019 K31.84 Gastroparesis Luis E Juarez MD 09/23/2019 R10.13 Epigastric pain Luis E Juarez MD 09/23/2019 K21.0 Gastro-esophageal reflux disease with esophagitis Luis E Juarez MD 09/23/2019 K59.04 Chronic idiopathic constipation Luis E Juarez MD Plan of Treatment Future Appointment(s):12/19/2019 9:30 am - Luis E Juarez MD at [facility]09/23/2019 - Luis E Juarez MDK31.84 GastroparesisNew Medication:Metoclopramide HCL 10 mg - 4 tabs daily, 30 mins before meals and at bedtimeComments:Trial of Reglan 10 mg four times a day, 30 minutes before meals and at bedtimeGastroparesis dietR10.13 Epigastric painComments:Trial of Reglan and gastroparesis dietK21.0 Gastro-esophageal reflux disease with esophagitisComments:Continue with PPI daily, 30 minutes before breakfastAntireflux lifestyle [id number] Chronic idiopathic constipationNew Medication:Enema Mineral Oil - Administer per rectum for constipationComments:Trial of Linzess 72 mcg dailyMineral oil enemas prescribed for as needed for severe constipationClear liquid diet for now If no improvement with above interventions, will consider anorectal manometry referralFollow up:Follow-up in 3 months with Trial of Reglan Trial of Linzess Gastroparesis diet Functional Status Description No Information Available Mental Status Description No Information Available Referrals Description No Information Available
[2019-10-09 10:19] VITALS: BP 124/75
--- NOTE | 2019-10-09 10:42 | UC ---
Abdominal Pain Female HPI - HPI Summary HPI Summary: 44yo female presenting with epigastric pain and diarrhea since yesterday. States 5 episodes of diarrhea yesterday and 2 this morning. Denies blood in the stool. Also notes nausea without vomiting. Notes decreased appetite. States pain "sharp and stabbing" and is somewhat relieved by lying down and worse with standing up. Epigastric pain radiates to the left side. Also notes "bladder pressure with urination." States she had this same pain 2 weeks ago and was seen in [place] ED with negative testing, CT, and US. States she then saw her GI physician, Dr. Juarez, who prescribed her linzess and reglan for clinically diagnosed "blockage." Patient states that she called her physician again yesterday who told her to stop both medications and "to get more testing because something else may be going on." She states he told her to either go to the ED or the urgent care today. PMHx significant for gastroparesis and UC. PSHx total hysterectomy. - History of Current Complaint Chief Complaint: UCAbdominalPain Stated Complaint: UPSET STOMACH,HEADACHE x2 DAYS Hx Obtained From: Patient Hx Last Menstrual Period: 2001 Pain Intensity: 0 Allergies/Adverse Reactions: Allergies Allergy/AdvReac Type Severity Reaction Status Date / Time guaifenesin [From Yusefitussin] Allergy Severe Vomiting Verified 10/09/19 10:04 morphine Allergy Severe See Comment Verified 10/09/19 10:04 nickel Allergy Severe Rash Verified 10/09/19 10:04 Home Medications: Home Medications Acyclovir* [Zovirax 400 MG TAB*] 800 mg PO DAILY PRN 11/12/17 [History Confirmed 10/09/19] Levothyroxine TAB* [Synthroid 137 MCG TAB*] 112 mcg PO QAM 11/12/17 [History Confirmed 10/09/19] Pantoprazole TAB * [Protonix TAB*] 40 mg PO QAM 01/09/19 [History Confirmed ] Sertraline HCl [Zoloft] 50 mg PO QAM 03/20/19 [History Confirmed 10/09/19] PMH/Surg Hx/FS Hx/Imm Hx GI/ History: Other - gastroparesis, UC - Surgical History Surgical History: Yes Surgery Procedure, Year, and Place: colonoscopy. endoscopic. histroscopic [place]. partial cervix removed. HYSTERECTOMY--03/2014- [facility]). Lymph removal 10/11. vein release on L arm - Family History Known Family History: Positive: Hypertension, Respiratory Disease, Other - MS - mom and two aunts Negative: Diabetes - Social History Alcohol Use: None Substance Use Type: None Smoking Status (MU): Heavy Every Day Tobacco Smoker Type: Cigarettes Amount Used/How Often: 1 PPD Length of Time of Smoking/Using Tobacco: Since Age 20 Have You Smoked in the Last Year: Yes Household Exposure Type: Cigarettes - Immunization History Most Recent Influenza Vaccination: none 2016 Vaccination Up to Date: Yes Review of Systems All Other Systems Reviewed And Are Negative: Yes Constitutional: Positive: Negative. Negative: Fever, Chills ENT: Positive: Negative Respiratory: Positive: Negative Cardiovascular: Positive: Negative. Negative: Chest Pain Gastrointestinal: Positive: Abdominal Pain, Diarrhea, Nausea. Negative: Vomiting Genitourinary: Positive: Other - "bladder pressure with urination". Negative: Dysuria, Hematuria, Frequency Musculoskeletal: Positive: Negative. Negative: Myalgia Neurological/Mental Status: Positive: Headache Physical Exam - Summary Physical Exam Summary: Vital Signs Reviewed: Yes A+Ox3, no distress Eyes: Conjunctiva Clear ENT: Hearing grossly normal Neck: Positive: Supple Respiratory: Positive: No respiratory distress, No accessory muscle use + CTA throughout no w/r Cardiovascular: RRR nl s1, s2 no m/r Abd: soft + BS, hypoactive LLQ, +distention, +diffuse epigastric TTP, no guarding Musculoskeletal Exam: NOVOA x 4 without difficulty Neurological: Positive: Alert Psychological: Positive: age appropriate behavior Skin: Positive: no rash, no ecchymosis Vital Signs: Initial Vital Signs Temp 97.7 F 10/09/19 10:01 Pulse 70 10/09/19 10:01 Resp 16 10/09/19 10:01 BP 124/75 10/09/19 10:01 Pulse Ox 98 10/09/19 10:01 Lab Results 10/09/19 Range/Units 10:39 POC Urine Color Yellow POC Urine Clarity Clear POC Urine pH 7.0 (5-9) POC Ur Specif [place] 1.010 (1.010-1.030) POC Urine Protein Negative (Negative) POC Ur Glucose (UA) Negative (Negative) POC Urine Ketones Negative (Negative) POC Urine Blood Negative (Negative) POC Urine Nitrite Negative (Negative) POC Urine Bilirubin Negative (Negative) POC Urine Urobilinogen 0.2 (Negative) POC U Leukocyte Esteras Negative (Negative) Abd Pain Female Course/Dx - Course Course Of Treatment: Negative UA. Patient declined medication for nausea while here. Patient states she was sent here for "more lab testing by her GI doctor." I discussed with patient that based on her history and PE findings that evaluation in the emergency room is more appropriate since lab results will come back today and the proper imaging is available there as well. Patient voiced understanding and agreed with plan. Patient declined transfer via ambulance, stating she would have a cab take her since her boyfriend dropped her off here and left. She agreed to go to the ED immediately upon leaving the urgent care. Patient stable and in no distress upon departure. I attempted to call [place] [facility] to give report but could not get through to anyone there. - Differential Dx/Diagnosis Differential Diagnosis: Bowel Obstruction, Constipation, Gall Bladder Disease, Irritable Bowel Syndrome, Renal Colic, Urinary Tract Infection Provider Diagnosis: Epigastric pain, Diarrhea, Nausea Discharge ED - Sign-Out/Discharge Documenting (check all that apply): Patient Departure All imaging exams completed and their final reports reviewed: No Studies - Discharge Plan Condition: Stable Disposition: HOME-RECOMMEND TO ED Patient Education Materials: Acute Abdominal Pain (ED) Referrals: Mamta Newton MD [Primary Care Provider] - Additional Instructions: The provider that evaluated you today thinks that you need additional testing that can be completed in the emergency department. It is recommended that you go directly to emergency department for further evaluation. This evaluation included blood work or imaging. This testing will be directed and decided by the provider that evaluates you at the emergency department. If pain becomes worse, you feel lightheaded, you have uncontrolled vomiting, or you have any other concerns while you are being driven to emergency department it is recommended to pullover and contact 911. - Billing Disposition and Condition Condition: STABLE Disposition: Home-Recommend to ED
== END 2019-10-09 10:51 | disposition home health service (06) ==
LOC: UCCORT 09:56
DX: R10.13 Epigastric pain (principal); R19.7 Diarrhea, unspecified; R11.0 Nausea; Z88.5 Allergy status to narcotic agent; Z88.8 Allergy status to other drugs, medicaments and biological substances; Z91.09 Other allergy status, other than to drugs and biological substances; F17.210 Nicotine dependence, cigarettes, uncomplicated
CPT/HCPCS: 81003; 99212; G0463